=== PATIENT | female | born 1990 | race Caucasian/White ===

== ENCOUNTER → 2017-11-03 16:51 | Outpatient (CLI) | payer BC, SELFPAY ==
[2017-11-08 11:05] LABS: HPV Reflexed? NOT INDICATED
== END ==
PROVIDERS: Visit Provider Obstetrics & Gynecology
DX: Z12.4 Encounter for screening for malignant neoplasm of cervix (principal)
CPT/HCPCS: 88175; G0145

== ENCOUNTER → 2018-09-08 15:35 | Outpatient (CLI) | payer BC, SELFPAY ==
[2018-09-08 15:08] VITALS: BMI 29.3
[2018-09-08 17:42] LABS: Absolute Lymphocyte Count 2.58 X10^3/ul (0.83-4.51); Absolute Neutrophil Count 3.3 X10^3/uL (2.0-7.7); Basophil# 0.03 X10^3/uL; Basophil% 0.4 % (0-1); Eosinophils% 5.8 % (0-5); Hematocrit 35.9 % (37-47); Hemoglobin 11.8 g/dl (12.0-15.0); Lymphocyte # 2.58 X10^3/ul (4.0); Lymphocyte % 37.3 % (19-41); Mean Corp Hgb Conc 32.9 g/gl (32-36); Mean Corpuscular Hgb 33.7 pg (27.0-32.0); Mean Corpuscular Volume 102.6 fL (81-99); Mean Platelet Vol. 12.2 fl (6.2-12.0); Monocyte# 0.63 X10^3/uL; Monocyte% 9.1 % (0-10); Neutrophil # 3.28 X10^3/uL (2.7-7.7); Neutrophil % 47.4 % (47-70); Platelet Count 202 K/mm3 (150-450); White Blood Count 6.9 K/mm3 (4.4-11.0)
[2018-09-08 17:45] LABS: POSITIVE COUNT NO; POSITIVE DIFFERENTIAL NO; POSITIVE MORPHOLOGY NO
== END ==
PROVIDERS: Family Provider Internal Medicine; PCP Internal Medicine; Referring Provider Internal Medicine; Visit Provider Internal Medicine
DX: Z88.9 Allergy status to unspecified drugs, medicaments and biological substances (principal)
CPT/HCPCS: 36415; 85025

== ENCOUNTER → 2018-12-28 15:40 | Outpatient (CLI) | payer BC, SELFPAY ==
[2018-09-08 15:08] VITALS: BMI 29.3
[2019-01-03 15:42] LABS: HPV Reflexed? NOT INDICATED
== END ==
PROVIDERS: Visit Provider Obstetrics & Gynecology
DX: Z12.4 Encounter for screening for malignant neoplasm of cervix (principal)
CPT/HCPCS: 88175; G0145

== ENCOUNTER → 2019-05-11 17:22 | Outpatient (CLI) | payer BC, SELFPAY ==
[2019-05-11 16:21] VITALS: BMI 29.3
[2019-05-11 20:29] LABS: Chlamydia Trachomatis by PCR Negative (Negative); Neisserai gonorrhoeae by PCR Negative (Negative); Probe Check PASS; Sample Adequacy Control PASS; Specimen Processing Control PASS
== END ==
PROVIDERS: Family Provider Internal Medicine; PCP Internal Medicine; Referring Provider Obstetrics & Gynecology; Visit Provider Obstetrics & Gynecology
DX: Z34.81 Encounter for supervision of other normal pregnancy, first trimester (principal)
CPT/HCPCS: 36415; 87086; 87088; 87491; 87591

== ENCOUNTER → 2019-07-04 15:23 | Outpatient (CLI) | payer BC, SELFPAY ==
[2019-07-04 14:59] VITALS: BMI 29.3
[2019-07-04 16:25] LABS: Absolute Lymphocyte Count 2.65 X10^3/uL (0.83-4.51); Absolute Neutrophil Count 5.4 X10^3/uL (2.0-7.7); Basophil# 0.03 X10^3/uL; Basophil% 0.3 % (0-1); Eosinophil# 0.28 X10^3/uL; Eosinophils% 3.1 % (0-5); Hematocrit 31.9 % (37-47); Hemoglobin 10.7 g/dL (12.0-15.0); Lymphocyte # 2.65 X10^3/ul (4.0); Lymphocyte % 29.5 % (19-41); Mean Corp Hgb Conc 33.5 g/dL (32-36); Mean Corpuscular Hgb 34.4 pg (27.0-32.0); Mean Corpuscular Volume 102.6 fL (81-99); Mean Platelet Vol. 12.4 fl (6.2-12.0); Monocyte# 0.65 X10^3/uL; Monocyte% 7.2 % (0-10); NRBC Flagged by Analyzer 0 % (0-5); Neutrophil # 5.36 X10^3/uL (2.7-7.7); Neutrophil % 59.7 % (47-70); Platelet Count 177 K/mm3 (150-450); RBC Distribution Width CV 12.7 % (11.6-14.6); RBC Distribution Width SD 47.6 fl (35.1-43.9); Red Blood Count 3.11 M/mm3 (4.2-5.4)
[2019-07-05 09:41] LABS: HIV - WCH Non-Reactive (Nonreactive); Hepatitis B Surface Antigen Non-Reactive (Nonreactive); Rubella IgG 103.9 IU/mL
[2019-07-06 02:17] LABS: Rapid Plasmin Reagin (RPR) NONREACTIVE (NONREACTIVE)
== END ==
PROVIDERS: Family Provider Internal Medicine; PCP Internal Medicine; Referring Provider Obstetrics & Gynecology; Visit Provider Obstetrics & Gynecology
DX: Z34.00 Encounter for supervision of normal first pregnancy, unspecified trimester (principal)
CPT/HCPCS: 36415; 85025; 86592; 86703; 86762; 86850; 86900; 86901; 87340

== ENCOUNTER → 2019-09-01 16:10 | Outpatient (CLI) | payer BC, SELFPAY ==
[2019-09-01 15:16] VITALS: BMI 29.3
[2019-09-01 17:16] LABS: Absolute Lymphocyte Count 2.39 X10^3/uL (0.83-4.51); Absolute Neutrophil Count 5.9 X10^3/uL (2.0-7.7); Basophil# 0.02 X10^3/uL; Basophil% 0.2 % (0-1); Eosinophil# 0.21 X10^3/uL; Eosinophils% 2.3 % (0-5); Hematocrit 32.7 % (37-47); Hemoglobin 10.8 g/dL (12.0-15.0); Lymphocyte # 2.39 X10^3/ul (4.0); Mean Corpuscular Hgb 34.7 pg (27.0-32.0); Mean Corpuscular Volume 105.1 fL (81-99); Mean Platelet Vol. 12.4 fl (6.2-12.0); Monocyte# 0.63 X10^3/uL; Monocyte% 6.9 % (0-10); NRBC Flagged by Analyzer 0 % (0-5); Neutrophil % 64.3 % (47-70); Platelet Count 150 K/mm3 (150-450); RBC Distribution Width CV 12.5 % (11.6-14.6); Red Blood Count 3.11 M/mm3 (4.2-5.4); White Blood Count 9.2 K/mm3 (4.4-11.0)
[2019-09-01 17:50] LABS: Glucose Challenge Gest 1H 50g 151 mg/dL (70-140)
== END ==
PROVIDERS: PCP Internal Medicine; Referring Provider Obstetrics & Gynecology; Visit Provider Obstetrics & Gynecology
DX: Z34.01 Encounter for supervision of normal first pregnancy, first trimester (principal)
CPT/HCPCS: 36415; 82950; 85025

== ENCOUNTER → 2019-09-05 06:40 | Outpatient (CLI) | payer BC, SELFPAY ==
[2019-09-01 15:16] VITALS: BMI 29.3
[2019-09-05 07:43] LABS: Glucose GTT-Gestation. Fasting 84 mg/dL (<105)
== END ==
PROVIDERS: PCP Internal Medicine; Referring Provider Obstetrics & Gynecology; Visit Provider Obstetrics & Gynecology
DX: O99.810 Abnormal glucose complicating pregnancy (principal); Z3A.00 Weeks of gestation of pregnancy not specified
CPT/HCPCS: 36415; 82951; 82952

== ENCOUNTER → 2019-11-17 | Outpatient (CLI) | payer BC, SELFPAY ==
[2019-11-17 14:52] VITALS: BMI 29.3
== END | disposition home or self-care (01) ==
LOC: LABSPEC 16:41
PROVIDERS: PCP Internal Medicine; Referring Provider Obstetrics & Gynecology; Visit Provider Obstetrics & Gynecology
DX: Z34.93 Encounter for supervision of normal pregnancy, unspecified, third trimester (principal)
CPT/HCPCS: 87077; 87081

== ENCOUNTER 2019-12-15 07:10 | Inpatient (IN) | payer BC, SELFPAY ==
[2019-10-25 13:17] VITALS: BMI 29.3
[2019-12-14 09:59] VITALS: BMI 29.3
[2019-12-15] VITALS (34 sets, daily range): BP systolic 119–162; BP diastolic 69–94; PULSE 49–82; TEMP 36.4–37.1; O2SAT 98–100; BMI 32.7
[2019-12-15] MEDS: Lactated Ringers 1,000 ML 50 ML IV (08:25)
[2019-12-15] MEDS: Oxytocin 30 units/NS 500 ml 30 UNITS/500 ML IV.SOLN IV (08:36)
[2019-12-15 08:39] LABS: Absolute Lymphocyte Count 2.26 X10^3/uL (0.83-4.51); Absolute Neutrophil Count 4.8 X10^3/uL (2.0-7.7); Basophil# 0.02 X10^3/uL; Basophil% 0.3 % (0-1); Eosinophil# 0.05 X10^3/uL; Eosinophils% 0.6 % (0-5); Hematocrit 29.6 % (37-47); Hemoglobin 9.7 g/dL (12.0-15.0); Lymphocyte # 2.26 X10^3/ul (4.0); Mean Corp Hgb Conc 32.8 g/dL (32-36); Mean Corpuscular Hgb 35.3 pg (27.0-32.0); Mean Corpuscular Volume 107.6 fL (81-99); Mean Platelet Vol. 14.2 fl (6.2-12.0); Monocyte# 0.61 X10^3/uL; Monocyte% 7.8 % (0-10); NRBC Flagged by Analyzer 0 % (0-5); Neutrophil # 4.81 X10^3/uL (2.7-7.7); Neutrophil % 61.9 % (47-70); Platelet Count 107 K/mm3 (150-450); RBC Distribution Width CV 12.7 % (11.6-14.6); RBC Distribution Width SD 49.5 fl (35.1-43.9); Red Blood Count 2.75 M/mm3 (4.2-5.4); White Blood Count 7.8 K/mm3 (4.4-11.0)
[2019-12-15 10:31] LABS: Probe Check PASS; SARS-COV-2 DNA by PCR Negative (Negative); Specimen Processing Control PASS
[2019-12-15] MEDS: Lactated Ringers 500 ML 999 ML IV ×2 (14:32→17:46)
[2019-12-15] MEDS: fentaNYL-bupivacaine (epidural) 100 ML BAG EPIDURAL (19:35)
[2019-12-15] MEDS: Lactated Ringers 1,000 ML 200 ML IV (20:31)
[2019-12-16] VITALS (26 sets, daily range): BP systolic 111–151; BP diastolic 55–85; PULSE 50–90; RESP 16; TEMP 36.4–37.3; O2SAT 97–99
[2019-12-16] MEDS: fentaNYL-bupivacaine (epidural) 100 ML BAG EPIDURAL (00:07)
[2019-12-16] MEDS: Acetaminophen 325 MG Tablet PO (01:36)
[2019-12-16] MEDS: Lactated Ringers 1,000 ML 200 ML IV (01:37)
--- NOTE | 2019-12-16 02:15 | PCM.HPOB.BLA ---
- Problem List (1) Abnormal glucose affecting Status: Acute Comment: vomited at 3gtt, nl home BS testing- normal (2) Post-dates Status: Acute Comment: COVID testing ordered 12/14/2019 (3) Status: Acute Qualifiers: Comment: NIPT-low risk male, carrier-14/14 negative, and declined ntd screening. Normal anatomy (4) Supervision of normal Status: Acute Qualifiers: Comment: PRR KONRAD 12/11/19 boy Vance Judah History and Physical Date of Admission: 12/16/19 Intake Vital Signs 12/14/19 Height 5 ft 6 in 12/14/19 Weight: 202 lb 12/14/19 BMI 32.5 12/14/19 BP 134/70 H 12/08/19 BMI 29.3 Intake Visit Reasons: 41 WK OB Can Patcher Required: No Is patient in pain?: No Allergies amoxicillin Allergy (Intermediate, Verified 12/14/19 09:35) Rash Medications cetirizine 10 mg capsule 10 mg PO DAILY 05/11/19 [History Confirmed 12/14/19] vitamin#30 30 mg iron-10 mg iron-folic acid 1 mg-omg3 capsule cap PO cap 05/11/19 [History Confirmed 12/14/19] psyllium husk 0.52 gram capsule 0.52 g PO DAILY 05/11/19 [History Confirmed 12/14/19] blood sugar diagnostic See Rx Instructions .ROUTE .MEDSUPPLY #100 ea 09/05/19 [Rx Confirmed 12/14/19] blood-glucose meter See Rx Instructions .ROUTE .MEDSUPPLY #1 ea 09/05/19 [Rx Confirmed 12/14/19] Last Menstral Period: 03/06/19 Zika: Zika virus screening: Negative : No PFSH PFSH Medical History Anemia (Acute) Seasonal allergies (Resolved) Family History Mother Thyroid disorder Depression Arthritis Brother Depression Grandfather Alcoholism Schizophrenia Kidney disease Grandmother Diabetes Social History (Updated 12/14/19 @ 09:[address] 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 Patient denies any vaginal bleeding or loss of fluid admits good movement and has irregular contractions. OB Visit KONRAD Calculator Estimated Delivery Date Method Current WG Current Estimate 12/11/19 LMP (Certain) Expected Delivery Route/Plan Labor Preferences- labor support person: Judah pain management options preferred: open to epidural cut cord/dad catch: yes : yes PP control planned: discussed possible routes of delivery and associated risks: discussed options special requests: minimal intervention preferred Specific Issue/Plans flu vaccine: given tdap vaccine: given rhogam: na LARC form signed: yes movement and labor precautions reviewed. Problem list reviewed and updated with the most current plan of care details and appropriate orders placed. Relevant counseling for the gestational age provided. Continue routine care and follow up unless otherwise noted in visit notes/problem list details Initial Weight: 162 lb Date EGA Weight BP Urine Prot Glucose FHR FuHt Pres Dilation Effaced St Visit Note 05/11/19 9w 3d 162 lb (+0 oz) 170 06/09/19 13w 4d 163 lb 2 oz (+1 lb 2 oz) 129/73 Negative Negative 145 no vb cramping 07/04/19 17w 1d 166 lb 2 oz (+4 lb 2 oz) 124/60 Negative Negative 140 18 no vb cramping 08/03/19 21w 3d 170 lb (+8 lb) 110/72 Negative Negative 135 21 SM- no vb cramping 09/01/19 25w 4d 178 lb (+16 lb) 98/60 Negative Negative 140 26 SM- no vb lof good fm no regular ctx cbc gct today 09/12/19 27w 1d 181 lb (+19 lb) 122/78 Negative Negative 145 28 SM- no vb lof good fm no regular ctx. vomited at 3 hour test, dtesting BS at home- no diabetes 09/29/19 29w 4d 186 lb 8 oz (+24 lb 8 oz) 104/70 Negative Negative 145 31 sm- NO VB LOF GOOD FM NO REGULAR CTX 10/13/19 31w 4d 187 lb (+25 lb) 116/64 Negative Negative 140 32 SM- no vb lof good fm no regular ctx 10/25/19 33w 2d 191 lb (+29 lb) 120/82 151 33 MH-no Vb, LOF. Good FM. Unable to give urine today 11/17/19 36w 4d 196 lb (+34 lb) 118/70 Negative Negative 150 36 Cephalic 0.5 -1 SM- no vb lof good fm no regular ctx 11/24/19 37w 4d 198 lb (+36 lb) 118/72 Negative Negative 145 37 Cephalic 1 50 -1 SM- no vb lof good fm no regular ctx gbs pos reviewed SM- no vb lof good fm no regular ctx 12/01/19 38w 4d 135 38 Cephalic 1.5 60 -2 SM- no vb lof good fm no regular ctx 12/08/19 39w 4d 201 lb (+39 lb) 126/72 Negative Negative 135 38 Cephalic 3 70 -1 Sm- no vb lof good fm no regular ctx 12/14/19 40w 3d 202 lb (+40 lb) 134/70 Negative Negative 130 37 Cephalic 3 70 -1 SM- n ovb lof good fm no regular ctx. discuss IOL postdates Notes Visit Date: 12/14/19 ??No visit notes to display Visit Date: 12/08/19 ??No visit notes to display Visit Date: 12/01/19 ??No visit notes to display Visit Date: 11/24/19 ??No visit notes to display Visit Date: 11/17/19 ??No visit notes to display Visit Date: 10/25/19 ??No visit notes to display Visit Date: 10/13/19 ??No visit notes to display Visit Date: 09/29/19 ??No visit notes to display Visit Date: 09/12/19 ??No visit notes to display Visit Date: 09/01/19 ??No visit notes to display Visit Date: 08/03/19 ??No visit notes to display Visit Date: 07/04/19 ??No visit notes to display Visit Date: 06/09/19 ??no vb cramping ??Deann Meeks MD on 06/09/19 Visit Date: 05/11/19 ??No visit notes to display ACOG First Trimester First Trimester: Desire for , Alcohol, Tobacco Cessation, Illicit/Recreational Drug/Substance Use, Intimate Partner Violence, Barriers to care, Unstable Housing, Communication Barriers, Environmental/Work Hazards, Anticipated Course of Care, Toxoplasmosis Precations, Use of Any medications, Sexual activity, Exercise, Dental Care, Sauna/Hot tub use, Seat Belt use, Childbirth classes/Hospital facilities, , Travel, Indications for US and Screening for Aneuploidy Second Trimester Second Trimester: Signs and Symptoms of Labor, Selecting a care provider, Reproductive Life Planning, Care Planning, Tobacco Cessation, Depression/Anxiety and Intimate Partner Violence Third Trimester Third Trimester: Pain Management Plans, Labor support person(s), Immediate Larc, Movement Monitoring and Infant Feeding Yes ; discussed Trial of Labor after Counseling or discussed Circumcision preference Diagnostics Diagnostics Diagnostics Gest Glucose Tolerance MG/DL 09/05/19 Glucose 1 Hr 50 gm 151 mg/dL (70-140) H 09/01/19 Hgb 10.8 g/dL (12.0-15.0) L 09/01/19 Hct 32.7 % (37-47) L 09/01/19 Details: HIV: Urine Culture: Sequential Screen: NIPT Screen: ROS Const Reports system reviewed and no additional complaints, except as docu Card Reports system reviewed and no additional complaints, except as docu Resp Reports system reviewed and no additional complaints, except as docu GI Reports system reviewed and no additional complaints, except as docu, Reports nausea Reports system reviewed and no additional complaints, except as docu Musc Reports system reviewed and no additional complaints, except as docu Exam Const General: cooperative, healthy appearing, comfortable, anxious HENMT Head: normal to inspection Nose: external nose normal Face and sinus: normal facial exam Neck Neck: normal visual inspection, full ROM, no lymphadenopathy Thyroid: thyroid normal Chest Chest palpation & inspection: normal inspection of the chest Resp Effort & Inspection: normal respiratory effort GI Inspection: normal to inspection Palpation: soft, other (gravid uterus) Other: vertex and appropriate size for gestational age Other: Cervical Exam: Extrem General: pedal edema Results POC Urinalysis 2 Dip (Clinic) Office Urine Glucose Negative Last Edit by Farideh Hong on 12/14/19 09:36 Office Urine Protein Negative Last Edit by Farideh Hong on 12/14/19 09:36 Assessment & Plan Problems 1. Abnormal glucose affecting O99.810 vomited at 3gtt, nl home BS testing- normal 2. 40 weeks gestation of Z3A.40 NIPT-low risk male, carrier-14/14 negative, and declined ntd screening. Normal anatomy 3. Encounter for supervision of normal first in first trimester Z34.01 PRR KONRAD 12/11/19 boy Vance Judah Lam Patient presents IOL postdates, plan management for , pitocin/AROM tomorrow. Pain management: open to epidural. GBS negative. Management of any complications: none I have reviewed the [facility] and made any clinically relevant updates. Orders Orders: POC Urinalysis 2 Dip (Clinic) Today Coding Level of Care Code OB Routine Diagnoses Abnormal glucose affecting O99.810 40 weeks gestation of Z3A.40 ??Weeks of gestation: 40 weeks Encounter for supervision of normal first in first trimester Z34.01 ??Normal : normal first ??Trimester: first trimester
--- NOTE | 2019-12-16 02:17 | PCM.OPRPT ---
Problem List (1) Abnormal glucose affecting Status: Acute Comment: vomited at 3gtt, nl home BS testing- normal (2) Post-dates Status: Acute Comment: COVID testing ordered 12/14/2019 (3) Status: Acute Qualifiers: Comment: NIPT-low risk male, carrier-14/14 negative, and declined ntd screening. Normal anatomy (4) Supervision of normal Status: Acute Qualifiers: Comment: PRR KONRAD 12/11/19 boy Vance Judah Vaginal Delivery Maternal Presentation: Medically Indicated Induction iol postdates 40w4d Method of Induction: Pitocin Amniotic Membrane Rupture Type: Artificial Amniotic Fluid Description: Clear Final KONRAD: 12/11/19 Gestational age: 40 Weeks and 5 Days Date of Procedure: 12/16/19 Pre-Operative Diagnosis: iol postdates Post-Operative Diagnosis: same Surgery/ Procedure Performed: Spontaneous Vaginal Delivery Type of Anesthesia: Epidural Description of Procedure: Patient began pushing and delivered the head in the [PJ] presentation. The head was delivered atraumatically. Upon delivery of the head it was apparent that her shoulder dystocia was encountered. Gentle downward traction was applied to the head wall Angel and suprapubic from maternal left were applied. With no reduction after 30 seconds with screw maneuver was employed to rotate the shoulders so the anterior shoulder was the left shoulder instead of the right. Additional suprapubic was then placed and the shoulder reduced for a total duration of 45 seconds. Delayed cord clamping was employed for approximately 60 seconds. Cord was clamped and cut and gentle traction was applied to the cord and the placenta delivered spontaneously immediately following it was noted to be intact with three-vessel cord. The perineum and vagina were inspected and noted to have a third-degree perineal laceration. Patient was noted to have a very short perineal body. Hymenal band that had been prior noted to have completely removed with delivery. EBL was 300 cc. Patient and tolerated delivery well. Presentation: PJ Placental Delivery Description: Spontaneous Placenta Disposition: [facility] Cord Vessel Description: 3 Vessels Cord Entanglement: None Estimated Blood Loss: 300 Infant A gender: Male (1 minute): 7 (5 minute): 9 Episiotomy Description: None Laceration: Perineal Extension/lac, 3rd degree Medications given after delivery: IV Pitocin Complications: - - moderate shoulder dystocia, discussed with parents that between having the moderate shoulder dystocia that also resulted in a third-degree tear, this does appear to be a larger and I believe it would be possible to have another vaginal but I would recommend induction of labor at 39 weeks to reduce size. I also discussed with the patient that she could consider primary in the future, and if infant was the same weight or more this would be the desired route for delivery possibly. Multi Select Codes - Urinary/Genital Urinary/Genital CPT Codes: 31553 Vaginal Delivery [facility]
[2019-12-16] MEDS: Oxytocin 30 units/NS 500 ml 30 UNITS/500 ML IV.SOLN 334 UNITS IV (03:10)
[2019-12-16] MEDS: Ketorolac 30 MG/ML Syringe IV (04:33)
[2019-12-16] MEDS: 0.9% Saline Lock 10 ML Syringe IV (04:34)
[2019-12-16] MEDS: Acetaminophen 500 MG Tablet 1000 MG PO ×3 (07:37→23:53)
[2019-12-16] MEDS: Ketorolac 10 MG Tablet PO ×3 (10:37→21:45)
[2019-12-16] MEDS: Loratadine 10 MG Tablet PO (10:37)
[2019-12-16] MEDS: Psyllium 1 PACKET PO (10:37)
[2019-12-16] MEDS: Prenatal Vits Tablet 1 TABLET PO (10:37)
[2019-12-16] MEDS: oxyCODONE 5 MG Tablet PO ×2 (13:06→18:11)
[2019-12-17] VITALS: BP 97/53; PULSE 61; RESP 16; TEMP 36.5
[2019-12-17] MEDS: oxyCODONE 5 MG Tablet PO ×3 (00:44→12:38)
[2019-12-17] MEDS: Ketorolac 10 MG Tablet PO ×2 (04:31→10:04)
--- NOTE | 2019-12-17 07:12 | PN.OBGYN_ITS ---
Subjective: doing well no complaints pain controlled no CP SOB N V ambulating well tolerating po lochia moderate, going well - Physical Exam Vitals/I&O's: Vital Signs Temp Pulse Resp BP Pulse Ox 97.7 F L 61 16 97/53 L 98 12/17/19 00:00 12/17/19 00:00 12/17/19 00:00 12/17/19 00:00 12/16/19 05:30 Oxygen Delivery Method Room Air Weight: 202 lb 9.6 oz Body Mass Index (BMI) 32.7 Intake and Output for Last 24 Hours 12/15/19 12/16/19 12/17/19 23:59 23:59 23:59 Intake Total 1868.73 / 1868.73 2508.50 / 2508.50 Output Total 1999 Balance 1868.73 / 1868.73 508.50 / 508.50 General: Alert, Oriented x3 Current Medications Acetaminophen (Tylenol) 1,000 mg PO Q8H PRN PRN PRN Reason: Pain Score 1-3/10 Last Admin: 12/16/19 23:53 Dose: 1,000 mg Documented by: Bisacodyl (Dulcolax) 10 mg RECTAL UD PRN PRN Reason: If no BM Dibucaine (Dibucaine) 1 applic TOPICAL TID PRN PRN; Protocol PRN Reason: Discomfort Hydrocortisone (Hytone) 1 applic TOPICAL TID PRN PRN; Protocol PRN Reason: Discomfort Ketorolac Tromethamine (Toradol) 10 mg PO Q6H [facility] Stop: 12/21/19 07:46 Last Admin: 12/17/19 04:31 Dose: 10 mg Documented by: Loratadine (Claritin) 10 mg PO DAILY [facility] Last Admin: 12/16/19 10:37 Dose: 10 mg Documented by: Methylergonovine Maleate (Methergine) 0.2 mg IM X1 PRN PRN Reason: Excess bleeding/uterine atony Ondansetron HCl (Zofran) 4 mg IV Q4H PRN PRN PRN Reason: Nausea Oxycodone HCl (Oxyir) 5 - 10 mg PO Q4H PRN PRN PRN Reason: Pain Score 4-10/10 Last Admin: 12/17/19 00:44 Dose: 10 mg Documented by: Multivit/Folic Acid/Iron (Prenatabs Fa) 1 tablet PO DAILY [facility] Last Admin: 12/16/19 10:37 Dose: 1 tablet Documented by: Psyllium Hydrophilic Mucilloid (Metamucil) 1 packet PO DAILY [facility] Last Admin: 12/16/19 10:37 Dose: 1 packet Documented by: Senna/Docusate Sodium (Senokot-S, Maria M-Colace) 1 - 2 tablet PO DAILY PRN PRN PRN Reason: Constipation Simethicone (Mylicon) 80 mg PO PCHS PRN PRN Reason: Indigestion/Stomach pain Sodium Chloride () 5 - 15 ml IV UD PRN PRN Reason: SALINE FLUSH Last Admin: 12/16/19 04:34 Dose: 10 ml Documented by: Medical Necessity - Tobacco Use Smoking Status: Never smoker Assessment/Plan All Active Problems (Last Reviewed 12/14/19 @ 09:34 by Farideh Hong) Post-dates (Acute) Abnormal glucose affecting (Acute) (Acute) Supervision of normal (Acute) Positive GBS test (Resolved) Seasonal allergies (Resolved) s/p PPD # 1 1. routine post delivery care 2. breast feeding- support given 3. rh positive 4. rubella immune
--- NOTE | 2019-12-17 07:13 | DCINST_ITS ---
Discharge Diet: No Restrictions Discharge Activity: Return to Normal Activity, May not drive while taking narcotic pain medications., May Shower May resume sexual activity in: 4-6 weeks Call your doctor if your incision/area has: Continuous Slow Oozing, Sudden Increased Bleeding, Increased Pain/ Swelling, Increased Redness, Foul Smelling Discharge Additional Instructions: If you experience any of the following, contact your healthcare provider. * Bleeding that soaks a pad every hour for 2 hours * Fever 100.4 or higher * Unrelieved incision or abdominal pain * Swelling, redness, discharge or bleeding from your incision or episiotomy site * Your incision begins to separate * Problems urinating (including inability to urinate or burning while urinating). * Visual changes * Severe headache * Flu-like symptoms * Pain or redness in one of both of your breasts * Pain, warmth, tenderness or swelling in your legs, especially the calf area * Frequent nausea and vomiting * Symptoms of depression or anxiety If you experience any of the following, call 911 or go to the nearest Emergency Room. * Chest pain * Problems breathing * Seizure activity * Partial or complete paralysis of a body part, slurred speech, weakness or drooping of the face, or a sudden inability to walk or hold your balance Allergies/Adverse Reactions: Allergies amoxicillin Allergy (Intermediate, Verified 12/15/19 07:44) Rash Medications to take at Discharge cetirizine 10 mg capsule 10 mg PO DAILY 05/11/19 vitamin#30 30 mg iron-10 mg iron-folic acid 1 mg-omg3 capsule 1 cap PO DAILY cap 05/11/19 psyllium husk 0.52 gram capsule 0.52 g PO DAILY 05/11/19 Please Follow Up With: Deann Meeks MD - [phone] When: Call to make an appointment with your doctor in 6 weeks. If you had elevated Blood pressure or 4th degree laceration you will need to be seen in 2 weeks. Primary Care Physician: Landon Garcia MD [Primary Care Provider] - Test Results: Test results from this visit will be discussed in further detail at your follow- up appointment, if applicable.
[2019-12-17] MEDS: Senna/Docusate Sodium 1 Tablet PO (08:21)
[2019-12-17 08:30] VITALS: BP 118/81; PULSE 62; RESP 16; TEMP 36.6
[2019-12-17] MEDS: Loratadine 10 MG Tablet PO (10:04)
[2019-12-17] MEDS: Psyllium 1 PACKET PO (10:04)
[2019-12-17] MEDS: Prenatal Vits Tablet 1 TABLET PO (10:04)
[2019-12-17 14:00] VITALS: BP 112/67; PULSE 66; RESP 16; TEMP 36.6
== END 2019-12-17 15:55 | disposition home or self-care (01) | DRG 768 ==
PROVIDERS: Admitting Provider Obstetrics & Gynecology; PCP Internal Medicine; Visit Provider Obstetrics & Gynecology
DX: O48.0 Post-term pregnancy (principal); Z37.0 Single live birth; O70.20 Third degree perineal laceration during delivery, unspecified; O66.0 Obstructed labor due to shoulder dystocia; O99.814 Abnormal glucose complicating childbirth; Z3A.40 40 weeks gestation of pregnancy
CPT/HCPCS: 59025; 59050; 85025; 86850; 86900; 86901; 87635; 99218; G2023; J7120; A4216; G0378; U0004

== ENCOUNTER 2021-08-11 15:38 | Outpatient (CLI) | payer BC, SELFPAY ==
[2021-08-11 16:42] LABS: Absolute Lymphocyte Count 2.62 X10^3/uL (0.83-4.51); Absolute Neutrophil Count 2.2 X10^3/uL (2.0-7.7); Basophil# 0.04 X10^3/uL; Basophil% 0.7 % (0-1); Eosinophils% 6.9 % (0-5); Hematocrit 36.1 % (37-47); Hemoglobin 12.1 g/dL (12.0-15.0); Lymphocyte # 2.62 X10^3/ul (0.83-4.51); Lymphocyte % 44.9 % (19-41); Mean Corp Hgb Conc 33.5 g/dL (32-36); Mean Corpuscular Hgb 32.8 pg (27.0-32.0); Mean Corpuscular Volume 97.8 fL (81-99); Mean Platelet Vol. 12.5 fl (6.2-12.0); Monocyte% 10.3 % (0-10); NRBC Flagged by Analyzer 0 % (0-5); Neutrophil # 2.16 X10^3/uL (2.7-7.7); Platelet Count 194 K/mm3 (150-450); RBC Distribution Width CV 12.7 % (11.6-14.6); RBC Distribution Width SD 45.5 fl (35.1-43.9); Red Blood Count 3.69 M/mm3 (4.2-5.4); White Blood Count 5.8 K/mm3 (4.4-11.0)
[2021-08-11 16:58] LABS: ALB/GLOB Ratio 0.9 RATIO (0.9-2.4); AST(SGOT) 11 U/L (15-37); Alanine Aminotransfer ALT/SGPT 21 U/L (13-56); Albumin, Serum 3.6 g/dL (3.2-5.0); Alkaline Phosphatase 46 U/L (45-117); Anion Gap 3 (5-15); BUN 7 mg/dL (7-18); BUN/Creat Ratio 9.7 RATIO (10-20); Calcium,Total 8.7 mg/dL (8.5-10.1); Chloride 108 mmol/L (98-107); Cholesterol 166 mg/dL (200); Creatinine, Serum 0.72 mg/dL (0.55-1.02); EST Glomerular Filtration Rate 99 mL/min (>60); Est Glom Filt Rate - Afr Amer 120 mL/min (>60); Globulin 3.8 g/dL (2.2-4.2); Glucose 92 mg/dL (74-106); High Density Lipoprotein 31 mg/dL; Potassium 3.9 mmol/L (3.5-5.1); Protein, Total 7.4 g/dL (6.4-8.2); Sodium Level 138 mmol/L (136-145); Triglycerides 187 mg/dL; Very Low Density Lipoprotein 37 mg/dL (5-40)
== END 2021-08-11 23:59 | disposition short-term general hospital (02) ==
LOC: BIMLAB 15:38
PROVIDERS: PCP Internal Medicine; Referring Provider Internal Medicine; Visit Provider Internal Medicine
DX: Z00.00 Encounter for general adult medical examination without abnormal findings (principal)
CPT/HCPCS: 36415; 80053; 80061; 85025

== ENCOUNTER 2021-10-23 16:51 | Outpatient (CLI) | payer BC, SELFPAY ==
[2021-10-29 21:38] LABS: HPV APTIMA, High Risk Negative (Negative)
== END 2021-10-23 23:59 | disposition home or self-care (01) ==
LOC: LABSPEC 16:53
PROVIDERS: PCP Internal Medicine; Visit Provider Obstetrics & Gynecology
DX: Z12.4 Encounter for screening for malignant neoplasm of cervix (principal)
CPT/HCPCS: 87624; 88175; G0145

== ENCOUNTER → 2022-01-15 | Outpatient (CLI) | payer BC, SELFPAY ==
[2022-01-15 15:20] LABS: Absolute Lymphocyte Count 2.01 X10^3/uL (0.83-4.51); Basophil# 0.02 X10^3/uL; Basophil% 0.2 % (0-1); Eosinophil# 0.19 X10^3/uL; Eosinophils% 2.3 % (0-5); Hematocrit 34.5 % (37-47); Hemoglobin 11.6 g/dL (12.0-15.0); Lymphocyte # 2.01 X10^3/ul (0.83-4.51); Lymphocyte % 24.7 % (19-41); Mean Corp Hgb Conc 33.6 g/dL (32-36); Mean Corpuscular Hgb 33.4 pg (27.0-32.0); Mean Corpuscular Volume 99.4 fL (81-99); Mean Platelet Vol. 11.3 fl (6.2-12.0); Monocyte# 0.93 X10^3/uL; Monocyte% 11.4 % (0-10); NRBC Flagged by Analyzer 0 % (0-5); Neutrophil # 4.97 X10^3/uL (2.7-7.7); Neutrophil % 61.2 % (47-70); Platelet Count 205 K/mm3 (150-450); RBC Distribution Width CV 11.9 % (11.6-14.6); RBC Distribution Width SD 43.7 fl (35.1-43.9); Red Blood Count 3.47 M/mm3 (4.2-5.4); White Blood Count 8.1 K/mm3 (4.4-11.0)
[2022-01-15 16:13] LABS: NATERA MAILED SPECIMEN
[2022-01-15 17:32] LABS: HIV - WCH Non-Reactive (Nonreactive); Hepatitis B Surface Antigen Non-Reactive (Nonreactive); Hepatitis C Antibody Non-Reactive (Nonreactive); Rubella IgG Reactive (Nonreactive); Syphilis Antibodies Non-reactive
[2022-01-15 17:33] LABS: Amphetamine Urine VISTA NEGATIVE (<1000 ng/mL); Barbiturate Urine VISTA NEGATIVE (< 200 ng/mL); Benzodiazepine Urine VISTA NEGATIVE (< 200 ng/mL); Cocaine Urine VISTA NEGATIVE (< 300 ng/mL); Ecstacy Urine VISTA NEGATIVE (< 500 ng/mL); Methadone Urine VISTA NEGATIVE (< 300 ng/mL); PCP Urine VISTA NEGATIVE (< 25 ng/mL); THC Urine VISTA NEGATIVE (< 50 ng/mL); Vista UDS pH Range 6
[2022-01-20 09:19] LABS: Chlamydia By Nucleic Acid AMP Negative (Negative)
[2022-01-20 16:54] LABS: Gonococcus By Nucleic Acid AMP Negative (Negative)
== END | disposition home or self-care (01) ==
PROVIDERS: PCP Internal Medicine; Referring Provider Obstetrics & Gynecology; Visit Provider Obstetrics & Gynecology
DX: Z34.81 Encounter for supervision of other normal pregnancy, first trimester (principal)
CPT/HCPCS: 36415; 80307; 85025; 86703; 86762; 86780; 86803; 86850; 86900; 86901; 87086; 87088; 87340; 87491; 87591

== ENCOUNTER → 2022-05-27 | Outpatient (CLI) | payer BC, SELFPAY ==
[2022-05-27 13:32] LABS: Absolute Lymphocyte Count 2.06 X10^3/uL (0.83-4.51); Absolute Neutrophil Count 5.5 X10^3/uL (2.0-7.7); Basophil# 0.01 X10^3/uL; Basophil% 0.1 % (0-1); Eosinophil# 0.22 X10^3/uL; Eosinophils% 2.6 % (0-5); Hematocrit 30.3 % (37-47); Hemoglobin 10.1 g/dL (12.0-15.0); Lymphocyte # 2.06 X10^3/ul (0.83-4.51); Lymphocyte % 24.8 % (19-41); Mean Corp Hgb Conc 33.3 g/dL (32-36); Mean Corpuscular Hgb 33.9 pg (27.0-32.0); Mean Corpuscular Volume 101.7 fL (81-99); Mean Platelet Vol. 11.8 fl (6.2-12.0); Monocyte# 0.51 X10^3/uL; Monocyte% 6.1 % (0-10); NRBC Flagged by Analyzer 0 % (0-5); Neutrophil # 5.48 X10^3/uL (2.7-7.7); Platelet Count 184 K/mm3 (150-450); RBC Distribution Width CV 12.6 % (11.6-14.6); RBC Distribution Width SD 47.3 fl (35.1-43.9); Red Blood Count 2.98 M/mm3 (4.2-5.4); White Blood Count 8.3 K/mm3 (4.4-11.0)
[2022-05-27 13:40] LABS: Glucose Challenge Gest 1H 50g 118 mg/dL (70-140)
[2022-05-27 15:58] LABS: HIV - WCH Non-Reactive (Nonreactive); Syphilis Antibodies Non-reactive
== END | disposition home or self-care (01) ==
LOC: PAVLAB 13:11
PROVIDERS: PCP Internal Medicine; Referring Provider Obstetrics & Gynecology; Visit Provider Obstetrics & Gynecology
DX: Z34.90 Encounter for supervision of normal pregnancy, unspecified, unspecified trimester (principal); Z13.1 Encounter for screening for diabetes mellitus
CPT/HCPCS: 36415; 82950; 85025; 86703; 86780

== ENCOUNTER 2022-06-14 21:35 | Outpatient (CLI) | payer BC, SELFPAY ==
[2022-06-14 21:50] VITALS: BMI 30.4
[2022-06-14 21:51] VITALS: BP 119/68; PULSE 75; TEMP 36.9
--- NOTE | 2022-06-14 22:15 | OB.TRI.HP_ITS ---
HPI - General HPI Narrative ARGENIS SANTOS, is a 32 F who presents with contractions the last two hours no vb lof admits good fm, ctx are starting to decrease now to every ten minutes, took tylenol earlier, initially felt no relief but now does. had malaise throughout the day and fatigue. Maternal Data Information KONRAD Calculator Estimated Delivery Date Method Current WG Current Estimate 08/20/22 LMP (Certain) 30w 3d PFSH PFSH Medical History Anemia Depression Lab test negative for COVID-19 virus Preventative health care Seasonal allergies URI (upper respiratory infection) Home Medications cetirizine 10 mg capsule (Zyrtec) 10 mg PO DAILY allergies 05/11/19 [History Last Taken 12/14/19] vitamin#30 30 mg iron-10 mg iron-folic acid 1 mg-omg3 capsule 1 cap PO DAILY 05/11/19 [History Last Taken 12/15/19 07:00] psyllium husk 0.52 gram capsule (Daily Fiber) 0.52 g PO DAILY fiber 05/11/19 [History Last Taken 12/15/19] fluticasone prop.50 mcg spray,suspen-sod.chloride 0.9% nasal spray kit ea intranasal 05/27/22 [History Last Taken Unknown] Allergy/AdvReac Type Severity Reaction Status Date / Time amoxicillin Allergy Intermediate Rash Verified 06/10/22 14:42 Family History Mother Thyroid disorder Depression Arthritis Brother Depression Grandfather Alcoholism Schizophrenia Kidney disease Grandmother Diabetes Social History Smoking Status: Never smoker alcohol intake: current alcohol intake frequency: a few times a month Alcohol type: beer details: pre substance use type: does not use what type of physical activity do you participate in: none frequency: 3-4 times per week seatbelt use: always do you feel safe at home: Yes 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 Date Name GA/Weeks Outcome Route Bth Weight Gen Labor Lgth Anesthesia Del Locatn Provider FOB 12/16/19 Vance 40 live - full term 8lbs 15oz Male [facility] Dr. Deann Meeks Delivery Date: 12/16/19 Last Updated by: Farideh Hong 3rd degree laceration, moderate shoulder dytocia Visit Details Expected Delivery Route/Plan Labor Preferences- CB/BF classes: no labor support person: Judah labor intervention preferences: [] pain management options preferred: epidural cut cord/dad catch: cord : yes PP control planned: discussed considering vasectomy discussed possible routes of delivery and associated risks: [] special requests: [] Plans Covid status: discussed Flu vaccine: at employer Tdap vaccine: [] Rhogam: na LARC form signed: yes Problem list reviewed and updated with the most current plan of care details and appropriate orders placed. Relevant counseling for the gestational age provided. Continue routine care and follow up unless otherwise noted in visit notes/problem list details OB Flowsheet Initial Weight: Not Recorded Date -?-?-?-?-?-?-?-?-?-?-?-?- EGA Weight BP Urine Prot -?-?-?-?-?-?-?-?-?-?-?-?- Glucose FHR FuHt Pres Dilation -?-?-?-?-?-?-?-?-?-?-?-?- Effaced St Visit Note 01/15/22 -?-?-?-?-?-?-?-?-?-?-?-?- 9w 0d 181 lb 113/62 -?-?-?-?-?-?-?-?-?-?-?-?- 170 -?-?-?-?-?-?-?-?-?-?-?-?- SM- CRL 2.3cm co ns with LMP 02/10/22 -?-?-?-?-?-?-?-?-?-?-?-?- 12w 5d 179 lb 126/78 Negative -?-?-?-?-?-?-?-?-?-?-?-?- Negative 160 -?-?-?-?-?-?-?-?-?-?-?-?- SM- no vb crampi ng still nausea. 03/13/22 -?-?-?-?-?-?-?-?-?-?-?-?- 17w 1d 178 lb 8 oz 112/60 Nega tive -?-?-?-?-?-?-?-?-?-?-?-?- Negative 154 -?-?-?-?-?-?-?-?-?-?-?-?- JV- no lof, vagi nal bleeding, or cramping. anatomy ultrasound ordered. 04/10/22 -?-?-?-?-?-?-?-?-?-?-?-?- 21w 1d 184 lb 101/67 Negative -?-?-?-?-?-?-?-?-?-?-?-?- Negative 134 -?-?-?-?-?-?-?-?-?-?-?-?- JV- no lof, vagi nal bleeding, or cramping. info on covid vaccine given. 05/08/22 -?-?-?-?-?-?-?-?-?-?-?-?- 25w 1d 185 lb 116/66 Negative -?-?-?-?-?-?-?-?-?-?-?-?- Negative 140 25 -?-?-?-?-?-?-?-?-?-?-?-?- SM- no vb lof go od fm no regular ctx 05/27/22 -?-?-?-?-?-?-?-?-?-?-?-?- 27w 6d 187 lb 6 oz 110/68 Nega tive -?-?-?-?-?-?-?-?-?-?-?-?- Negative 151 27 -?-?-?-?-?-?-?-?-?-?-?-?- MH-No VB, LOF. G ood FM. Larc. 28 wk labs. 06/10/22 -?-?-?-?-?-?-?-?-?-?-?-?- 29w 6d 188 lb 8 oz 98/63 Nega tive -?--?-?-?-?-?-?-?-?-?-?-?- Negative 143 29 -?-?-?-?-?-?-?-?-?-?-?-?- LC- no vb,lof,ct x. good FM. started iron, repeat cbc order placed. tdap given today. 06/14/22 -?-?-?-?-?-?-?-?-?-?-?-?- 30w 3d 119/68 -?-?-?-?-?-?-?-?-?-?-?-?- -?-?-?-?-?-?-?-?-?-?-?-?- ROS Constitutional Constitutional: Reports systems reviewed and no addt'l complaints, except as documented and as per HPI ENT HEENT: Reports systems reviewed and no addt'l complaints, except as documented Cardiovascular Cardiovascular: Reports systems reviewed and no addt'l complaints, except as documented Respiratory/Chest Respiratory/Chest: Reports systems reviewed and no addt'l complaints, except as documented Gastrointestinal Gastrointestinal: Reports as per HPI Genitourinary Genitourinary: Reports as per HPI Musculoskeletal Musculoskeletal: Reports systems reviewed and no addt'l complaints, except as documented Integumentary Integumentary: Reports systems reviewed and no addt'l complaints, except as documented Neurologic Neurologic: Reports systems reviewed and no addt'l complaints, except as documented Physical Exam Const alert, oriented x3 and no apparent distress HEENT Head and Scalp: normocephalic and atraumatic Neck full ROM and no lymphadenopathy Chest inspection of chest normal Resp normal respiratory effort GI GI Narrative: gravid, abdomen nontender, AGA Manual OB Exam: dilated .5, effaced 10 and station -4 NST FHR Rate Baby A Baseline: 140 Variability:: Moderate Accelerations:: 15 x 15 Decelerations:: None NST Reactive:: Yes FHR Category:: Category I Uterine Activity:: regular q 2-4 Assessment & Plan (1) contractions: COMMENT: seen in triage no PTL 06/14 dc home Charges/Coding Multi Select Codes Visit Charges Office Visit/Consults: 88925 OV L3 Est Urinary/Genital Urinary/Genital CPT Codes: 12196-00 non-stress test Interp
[2022-06-14 22:25] LABS: Mucous, Urine 0 SEEN /hpf (<or=2+); Red Blood Cells-Urine 0 SEEN /hpf (0-5); White Blood Cells 0 SEEN /hpf (0-5)
[2022-06-14 22:33] LABS: Color, Urine Straw (Yellow); Glucose, Dipstick Normal (Normal); Ketone-Dipstick Negative (Negative); Leukocyte Esterase-Dipstick Negative /ul (Negative); Nitrite-Dipstick Negative (Negative); Occult Blood-Urine Negative /ul (Negative); Protein-Dipstick Negative (Negative); Specific Gravity, Urine 1.005 (1.002-1.030); Urine Bilirubin Dipstick Negative (Negative); Urine Clarity Sl. Cloudy (Clear); Urine Urobilinogen Normal (Normal)
[2022-06-14 22:43] LABS: Bacteria RARE /hpf (None Seen); Squamous Epithelial Cells - UA 0-5 SEEN /hpf (5-10)
== END 2022-06-14 23:10 | disposition home or self-care (01) ==
LOC: WPOUT 21:40 → WP 21:40
PROVIDERS: PCP Internal Medicine; Visit Provider Obstetrics & Gynecology
DX: O47.03 False labor before 37 completed weeks of gestation, third trimester (principal); Z3A.30 30 weeks gestation of pregnancy
CPT/HCPCS: 59025; 59050; 81001

== ENCOUNTER → 2022-07-23 | Outpatient (CLI) | payer BC, SELFPAY | END | disposition home or self-care (01) | LOC: LABSPEC 15:06 | PROVIDERS: PCP Internal Medicine; Referring Provider Obstetrics & Gynecology; Visit Provider Obstetrics & Gynecology | DX: Z34.90 Encounter for supervision of normal pregnancy, unspecified, unspecified trimester (principal) | CPT/HCPCS: 87081 ==

== ENCOUNTER → 2022-07-24 | Outpatient (CLI) | payer BC, SELFPAY ==
--- NOTE | 2022-07-24 17:03 | US_ITS ---
STUDY: SECOND AND THIRD TRIMESTER OBSTETRICAL ULTRASOUND - LIMITED REASON FOR EXAM: Female, 32 years old 36 week growth LMP: Unknown. PRIOR ULTRASOUND: None. TECHNIQUE: Transabdominal TECHNICAL QUALITY: Adequate. FINDINGS: There is a single intrauterine fetus. The fetus is in a cephalic presentation. There is demonstrated cardiac activity with a heart rate of 147 bpm. There is a normal amniotic fluid volume. The largest amniotic fluid pocket measures 7.3 cm. The amniotic fluid index (KUMAR) is 19.4 cm. The placenta is fundal in location. There are Grade 1 placental changes. The cervix measures 3.2 cm cm in length. BIOMETRY: BPD: 8.8 cm: 35 weeks, 3 days HC: 32.2 cm: 36 weeks, 3 days AC: 31.8 cm: 35 weeks, 5 days FL: 7.1 cm: 36 weeks, 2 days age by current US: 36 weeks, 0 days. KONRAD by current US: 08/21/2022. Estimated weight: 2810 grams, +/- 421 grams, 46.4 percentile. US/OB Limited With Biometrics IMPRESSION: Single live intrauterine fetus in cephalic presentation with an estimated gestational age of 36 weeks. The KONRAD is to 08/21/2022. Electronically Signed: Antoine Salas MD at 15:53 EST ,
== END | disposition home or self-care (01) ==
LOC: US 16:59
PROVIDERS: PCP Internal Medicine; Referring Provider Obstetrics & Gynecology; Visit Provider Obstetrics & Gynecology
DX: Z34.93 Encounter for supervision of normal pregnancy, unspecified, third trimester (principal)
CPT/HCPCS: 76816

== ENCOUNTER 2022-08-13 09:30 | Inpatient (IN) | payer BC, SELFPAY ==
[2022-08-13] VITALS (19 sets, daily range): BP systolic 99–125; BP diastolic 57–88; PULSE 50–74; RESP 15–18; TEMP 36.2–36.8; O2SAT 96–100; BMI 31.5
[2022-08-13 10:52] LABS: Absolute Lymphocyte Count 2.51 X10^3/uL (0.83-4.51); Absolute Neutrophil Count 4.9 X10^3/uL (2.0-7.7); Basophil# 0.02 X10^3/uL; Basophil% 0.2 % (0-1); Eosinophil# 0.08 X10^3/uL; Hematocrit 31.2 % (37-47); Hemoglobin 10.7 g/dL (12.0-15.0); Lymphocyte # 2.51 X10^3/ul (0.83-4.51); Lymphocyte % 30.3 % (19-41); Mean Corp Hgb Conc 34.3 g/dL (32-36); Mean Platelet Vol. 12.6 fl (6.2-12.0); Monocyte# 0.71 X10^3/uL; Monocyte% 8.6 % (0-10); NRBC Flagged by Analyzer 0 % (0-5); Neutrophil # 4.94 X10^3/uL (2.7-7.7); Neutrophil % 59.7 % (47-70); Platelet Count 135 K/mm3 (150-450); RBC Distribution Width CV 13.2 % (11.6-14.6); RBC Distribution Width SD 49.6 fl (35.1-43.9); Red Blood Count 3.06 M/mm3 (4.2-5.4); White Blood Count 8.3 K/mm3 (4.4-11.0)
--- NOTE | 2022-08-13 11:07 | HP.PCM.OB_ITS ---
HPI - General General Date of Admission: 08/13/22 HPI Narrative ARGENIS SANTOS, is a 32 F who presents for LTCS sec to history of should dystocia. Maternal Data Information KONRAD Calculator Estimated Delivery Date Method Current WG Current Estimate 08/20/22 LMP (Certain) 39w 0d PFSH PFS Medical History Anemia Depression Lab test negative for COVID-19 virus Preventative health care Seasonal allergies URI (upper respiratory infection) Home Medications cetirizine 10 mg capsule (Zyrtec) 10 mg PO DAILY allergies 05/11/19 [History Last Taken 1 Day Ago ~08/12/22] vitamin#30 30 mg iron-10 mg iron-folic acid 1 mg-omg3 capsule 1 cap PO DAILY 05/11/19 [History Last Taken 1 Day Ago ~08/12/22] psyllium husk 0.52 gram capsule (Daily Fiber) 0.52 g PO DAILY fiber 05/11/19 [History Last Taken 1 Day Ago ~08/12/22] fluticasone prop.50 mcg spray,suspen-sod.chloride 0.9% nasal spray kit 1 ea intranasal PRN PRN Allergy Symptoms 05/27/22 [History Last Taken 3 Days Ago ~08/10/22] Allergy/AdvReac Type Severity Reaction Status Date / Time amoxicillin Allergy Intermediate Rash Verified 08/06/22 13:22 Family History Mother Thyroid disorder Depression Arthritis Brother Depression Grandfather Alcoholism Schizophrenia Kidney disease Grandmother Diabetes Social History Smoking Status: Never smoker alcohol intake: current alcohol intake frequency: a few times a month Alcohol type: beer details: pre substance use type: does not use what type of physical activity do you participate in: none frequency: 3-4 times per week seatbelt use: always do you feel safe at home: Yes additional social history: 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 Date Name GA/Weeks Outcome Route Bth Weight Gen Labor Lgth Anesthesia Del Locatn Provider FOB 12/16/19 Vance 40 live - full term 8lbs 15oz Male [facility] Dr. Deann Meeks Delivery Date: 12/16/19 Last Updated by: Farideh Hong 3rd degree laceration, moderate shoulder dytocia Visit Details Expected Delivery Route/Plan if weight low enough, discussed primary due to history of shoulder dystocia and third deggre laceration, patient wishes to proceed unless spontaneous labor in the 37th week. Labor Preferences- CB/BF classes: no labor support person: Judah labor intervention preferences: [] pain management options preferred: epidural cut cord/dad catch: cord : yes PP control planned: discussed considering vasectomy discussed possible routes of delivery and associated risks: [] special requests: [] Plans Covid status: discussed Flu vaccine: at employer Tdap vaccine: [] Rhogam: na LARC form signed: yes Problem list reviewed and updated with the most current plan of care details and appropriate orders placed. Relevant counseling for the gestational age provided. Continue routine care and follow up unless otherwise noted in visit notes/problem list details OB Flowsheet Initial Weight: Not Recorded Date -?-?-?-?-?-?-?-?-?-?-?-?- EGA Weight BP Urine Prot -?-?-?-?-?-?-?-?-?-?-?-?- Glucose FHR FuHt Pres Dilation -?-?-?-?-?-?-?-?-?-?-?-?- Effaced St Visit Note 01/15/22 -?-?-?-?-?-?-?-?-?-?-?-?- 9w 0d 181 lb 113/62 -?-?-?-?-?-?-?-?-?-?-?-?- 170 -?-?-?-?-?-?-?-?-?-?-?-?- SM- CRL 2.3cm co ns with LMP 02/10/22 -?-?-?-?-?-?-?-?-?-?-?-?- 12w 5d 179 lb 126/78 Negative -?-?-?-?-?-?-?-?-?-?-?-?- Negative 160 -?-?-?-?-?-?-?-?-?-?-?-?- SM- no vb crampi ng still nausea. 03/13/22 -?-?-?-?-?-?-?-?-?-?-?-?- 17w 1d 178 lb 8 oz 112/60 Nega tive -?-?-?-?-?-?-?-?-?-?-?-?- Negative 154 -?-?-?-?-?-?-?-?-?-?-?-?- JV- no lof, vagi nal bleeding, or cramping. anatomy ultrasound ordered. 04/10/22 -?-?-?-?-?-?-?-?-?-?-?-?- 21w 1d 184 lb 101/67 Negative -?-?-?-?-?-?-?-?-?-?-?-?- Negative 134 -?-?-?-?-?-?-?-?-?-?-?-?- JV- no lof, vagi nal bleeding, or cramping. info on covid vaccine given. 05/08/22 -?-?-?-?-?-?-?-?-?-?-?-?- 25w 1d 185 lb 116/66 Negative -?-?-?-?-?-?-?-?-?-?-?-?- Negative 140 25 -?-?-?-?-?-?-?-?-?-?-?-?- SM- no vb lof go od fm no regular ctx 05/27/22 -?-?-?-?-?-?-?-?-?-?-?-?- 27w 6d 187 lb 6 oz 110/68 Nega tive -?-?-?-?-?-?-?-?-?-?-?-?- Negative 151 27 -?-?-?-?-?-?-?-?-?-?-?-?- MH-No VB, LOF. G ood FM. Larc. 28 wk labs. 06/10/22 -?-?-?-?-?-?-?-?-?-?-?-?- 29w 6d 188 lb 8 oz 98/63 Nega tive -?-?-?-?-?-?-?-?-?-?-?-?- Negative 143 29 -?-?-?-?-?-?-?-?-?-?-?-?- LC- no vb,lof,ct x. good FM. started iron, repeat cbc order placed. tdap given today. 06/25/22 -?-?-?-?-?-?-?-?-?-?-?-?- 32w 0d 191 lb 122/68 Negative -?-?-?-?-?-?-?-?-?-?-?-?- Negative 145 33 -?-?-?-?-?-?-?-?-?-?-?-?- SM- no vb lof go od fm no regualr ctx but asher nunes on and off 07/09/22 -?-?-?-?-?-?-?-?-?-?-?-?- 34w 0d 191 lb 100/65 Negative -?-?-?-?-?-?-?-?-?-?-?-?- Negative 147 33 -?-?-?-?-?-?-?-?--?-?-?-?- JV- growth ultr asound ordered. today we discussed vs vaginal delivery. she is tearful stating that she had a very difficult recovery including months of PT for 3rd degree tear. She still feels abnormal rectal tissue protusion. She does not want to attempt a vaginal delivery if baby is going to be over 8 lbs. 07/23/22 -?-?-?-?-?-?-?-?-?-?-?-?- 36w 0d 196 lb 8 oz 119/70 Nega tive -?-?-?-?-?-?-?-?-?-?-?-?- Negative 145 36 -?-?-?-?-?-?-?-?-?-?-?-?- JV- growth scan is now scheduled for tomorrow. GBS collected. will call with results 07/31/22 -?-?-?-?-?-?-?-?-?-?-?-?- 37w 1d 195 lb 2 oz 116/79 Nega tive -?-?-?-?-?-?-?-?-?-?-?-?- Negative 145 38 Cephalic -?-?-?-?-?-?-?-?-?-?-?-?- Sm- no vb lof go od fm no regular ctx 08/06/22 -?-?-?-?-?-?-?-?-?-?-?-?- 38w 0d 199 lb 116/74 Negative -?-?-?-?-?-?-?-?-?-?-?-?- Negative 139 38 -?-?-?-?-?-?-?-?-?-?-?-?- JV- some irregul ar contractions. consent for section signed today. no complaints. 08/13/22 -?-?-?-?-?-?-?-?-?-?-?-?- 39w 0d 195 lb 8.8 oz -?-?-?-?-?-?-?-?-?-?-?-?- -?-?-?-?-?-?-?-?-?-?-?-?- NST FHR Rate Baby A Baseline: 130 ROS Constitutional Constitutional: Reports systems reviewed and no addt'l complaints, except as documented Eyes Eyes: Denies change in vision ENT HEENT: Reports systems reviewed and no addt'l complaints, except as documented; Denies headache(s) Cardiovascular Cardiovascular: Reports systems reviewed and no addt'l complaints, except as documented; Denies chest pain or dyspnea Respiratory/Chest Respiratory/Chest: Reports systems reviewed and no addt'l complaints, except as documented Gastrointestinal Gastrointestinal: Reports systems reviewed and no addt'l complaints, except as documented; Denies abdominal pain Genitourinary Genitourinary: Reports systems reviewed and no addt'l complaints, except as documented, contractions Details: present (irregular) and movement Details: present; Denies dysuria or genital lesions Musculoskeletal Musculoskeletal: Reports systems reviewed and no addt'l complaints, except as documented Neurologic Neurologic: Reports systems reviewed and no addt'l complaints, except as documented Endocrine Endocrinology: Reports systems reviewed and no addt'l complaints, except as documented Vital Signs Vital Signs Vital Signs: Weight Weight: 195 lb 8.8 oz Body Mass Index (BMI) 31.5 Physical Exam Const alert, oriented x3, no apparent distress and healthy appearing HEENT normocephalic and moist oral mucous membranes Head and Scalp: atraumatic Neck full ROM, no lymphadenopathy, supple and thyroid normal General: trachea midline Lymph Lymphatic: no lymphadenopathy noted Chest inspection of chest normal Resp normal respiratory effort Cardio regular rate GI normal to inspection, nondistended, normoactive bowel sounds, soft to palpation and non-tender Inspection: gravid external exam normal Manual OB Exam: estimated gestational size appropriate, presentation cephalic, dilated, effaced and station Extremity normal to inspection General Extremity: Negative for edema Skin no rashes or lesions noted Neuro no focal motor deficits and deep tendon reflexes 2+ bilaterally Motor Exam: strength 5/5 throughout and clonus absent Psych mental status grossly normal Labs Labs Labs: Blood Type O POSITIVE Antibody Screen NEGATIVE Hct 31.2 % (37-47) L Hgb 10.7 g/dL (12.0-15.0) L Pap Smear Negative Obstetrics US Syphilis Total Ab Non-reactive Rubella IgG Antibody Reactive (Nonreactive) Hep Bs Antigen Non-Reactive (Nonreactive) Chlamydia DNA (SHERRIE) Negative (Negative) Neisseria gonorrhoeae DNA (SHERRIE) Negative (Negative) HIV 1&2 Antibody Non-Reactive (Nonreactive) Glucose 1 Hr 50 gm 118 mg/dL (70-140) Rhogam given: No Miscellaneous Test Assessment & Plan (1) Anemia in preg-unspec: COMMENT: start FE and rpt CBC 4 wk (2) Family history of paroxysmal supraventricular tachycardia: COMMENT: previous son developed after , treated with digoxin for 6-9 months, resolved. (3) History of depression: COMMENT: no meds; stable (4) : QUALIFIERS: Weeks of gestation: 38 weeks Qualified Code(s): Z3A.38 - 38 weeks gestation of COMMENT: GBS negative, nipt low risk, 04/09 nl anatomy (5) Supervision of normal : COMMENT: PRR KONRAD 08/20/22, girl Lindsey, PC Vance Judah (6) History of shoulder dystocia: COMMENT: discussed options and plan ltcs for . LTCS scheduled for 08/13 @ 12. PLAN: Plan After discussing the patient's diagnosis and treatment plan options, patient wishes to proceed with surgical management. I have discussed with the patient the risks, benefits, and alternatives of the procedure which include but are not limited to risks of anesthesia, bleeding, infection, possible damage to bowel, bladder, or surrounding vasculature which could lead to additional surgery to evaluate any complications. Patient agrees to procedure and wishes to proceed. ACOG/uptodate references given for additional information regarding procedure.
--- NOTE | 2022-08-13 11:08 | EX.PCM.OBRPT ---
Assessment & Plan (1) History of shoulder dystocia: COMMENT: discussed options and plan ltcs for . LTCS scheduled for 08/13 @ 12. (2) Supervision of normal : COMMENT: PRR KONRAD 08/20/22, girl Lindsey, PC Vance Judah (3) : QUALIFIERS: Weeks of gestation: 38 weeks Qualified Code(s): Z3A.38 - 38 weeks gestation of COMMENT: GBS negative, nipt low risk, 04/09 nl anatomy (4) History of depression: COMMENT: no meds; stable (5) Family history of paroxysmal supraventricular tachycardia: COMMENT: previous son developed after , treated with digoxin for 6-9 months, resolved. (6) Anemia in preg-unspec: COMMENT: start FE and rpt CBC 4 wk Maternal Data Information KONRAD Calculator Estimated Delivery Date Method Current WG Current Estimate 08/20/22 LMP (Certain) 39w 1d Final KONRAD Source: LMP Details Operative Information Date of Procedure: 08/14/22 Pre-Operative Diagnosis: Previous Post-Operative Diagnosis: same Indications Narrative: previous shoulder dystocia Classification: Scheduled Type of Anesthesia: Spinal Special Medications: none Antibiotic Given: Clindamycin 600mg IV x1 and Gentamicin 1.5mg/kg IV x1 Drain: Go to straight drain Estimated Blood Loss: 600 Fluids Replaced: crystalloid Findings Description of Procedure: Spinal anesthesia was placed without difficulty. Go catheter was placed. The patient was placed in the dorsal supine position with leftward tilt. Patient was prepped and draped in the normal sterile fashion. Pfannenstiel skin incision was made with the scalpel and carried through to the underlying layer of fascia with the scalpel. Fascia was nicked in the midline and the incision extended laterally. The rectus bellies were dissected off superiorly and inferiorly with out complication both sharply and bluntly. The peritoneum was entered digitally. The incision was stretched and a low transverse uterine incision was made with the scalpel. The 's head was delivered atraumatically followed by the anterior and posterior shoulders without complication the rest of the infant delivered. The cord was clamped and cut and the infant was handed off to awaiting nurse. The placenta was delivered spontaneously immediately following and was noted to be intact and have a three-vessel cord. The uterus was exteriorized cleared of all clots and debris, and the incision was closed in a single layer closure using #1 Monocryl. The ovaries and fallopian tubes were noted to be within normal limits. The uterus was returned to the maternal abdomen and gutters were cleared of all clots and debris. The peritoneum was closed with 3-0 Monocryl in a running fashion. Gloves were changed prior to fascial closure. Fascia was closed with 0 PDS in a running fashion. Subcutaneous tissue was copiously irrigated and the skin was closed with 3-0 Monocryl in a subcuticular fashion. Mepilex dressing was applied without complication. Patient was taken to recovery in stable condition. Amniotic Membrane Rupture Type: Artificial Amniotic Fluid Description: Clear Placenta Disposition: [facility] Cord Vessel Description: 3 Vessels Cord Entanglement: None Delayed Cord Clamping: Yes Complications Risks of Surgery Discussed w/Patient: Bleeding, Infection, Need for Future C-Sections and Injury to surrounding structure(s) including bowel and bladder Vaginal Delivery Complication Complications: None Admit VTE Documentation VTE Present on Admission: No VTE Mechan Device Prophylaxis: SCD's Procedures Urinary/Genital [id number]: [id number] Delivery [facility]
[2022-08-13] MEDS: Lactated Ringers 1,000 ML 999 ML IV (11:32)
[2022-08-13] MEDS: Acetaminophen 500 MG Tablet 1000 MG PO ×3 (11:32→23:30)
[2022-08-13] MEDS: Sodium Citrate/Citric Acid 30 ML UDC PO (11:32)
[2022-08-13] MEDS: Lactated Ringers 1,000 ML 150 ML IV (11:37)
[2022-08-13] MEDS: Clindamycin 900 MG/50 ML BAG 75 MG IV (12:29)
[2022-08-13] MEDS: Oxytocin 15 Units/NS 250ml 15 UNITS/250 ML IV.SOLN 83 UNITS IV (13:28)
[2022-08-13] MEDS: Ketorolac 30 MG/ML Syringe IV ×2 (15:39→21:31)
[2022-08-13] MEDS: 0.9% Saline Lock 10 ML Syringe IV ×2 (17:34→21:32)
[2022-08-14] MEDS: hydrOXYzine PAM 25 MG Capsule 50 MG PO ×3 (00:34→16:28)
--- NOTE | 2022-08-14 02:33 | DCINST_ITS ---
Discharge Instructions Diet Discharge Diet: No restrictions Activity Discharge Activity: Return to Normal Activity, May Drive (when pain free and off narcotic pain meds), May Shower and May Take a Tub Bath (in 4 weeks) May resume sexual activity in: 6 weeks Weight Bearing Status: Full weight bearing Lifting Restrictions: under 30 lbs for 6 weeks Dressing / Incision Call your doctor if your incision/area has: Continuous Slow Oozing, Sudden Increased Bleeding, Increased Pain/ Swelling, Increased Redness, Foul Smelling Discharge and - Call your doctor if you observe: Fever of 101 or Higher, Using more than 1 pad per hour, Shortness of breath, Chest pain and Uncontrolled pain Suture Line Care: Avoid Pulling/Pushing and Avoid Pinching/Bending Change Dressing in: 1 week (leave open to air after removed) Remove Dressing in: 1 week (if present) Cleanse incision/area with: Soap & Water and Keep Dressing Clean & Dry Follow Up Care Please Follow Up With: Deann Meeks MD When: Call to make an appointment with your doctor for a postop visit in 2 and 6 weeks. Test Results: Test results from this visit will be discussed in further detail at your follow- up appointment, if applicable. Discharge Plan Admission Admit Date/Time: 08/13/22 09:30 Attending Provider: Deann Meeks Primary Care Provider: Landon Garcia Discharge Orders/Prescriptions Prescriptions: New oxycodone-acetaminophen [Percocet] 5-325 mg tablet 1 tab PO Q6H PRN (Reason: pain) 7 Days Qty: 20 0RF naproxen [naproxen] 500 mg tablet 500 mg PO BID PRN PRN (Reason: Pain) Qty: 30 1RF Continued Zyrtec 10 mg capsule 10 mg PO DAILY vitamin#30 30 mg iron-10 mg iron-folic acid 1 mg-omg3 capsule 30 mg iron-10 mg iron-1 mg capsule 1 cap PO DAILY psyllium husk [Daily Fiber] 0.52 gram capsule 0.52 g PO DAILY fluticasone prp-sod.chl,bicarb 50 mcg- 0.9 % kit,spray suspension and spray 1 ea intranasal PRN PRN (Reason: Allergy Symptoms) ferrous sulfate 65 mg PO/SL DAILY Referrals / Follow Up: Landon Garcia MD [Primary Care Provider] - Disposition Disposition (needs filled in before D/C Order can be placed): Home, Self Care
[2022-08-14 03:43] VITALS: BP 96/58; PULSE 54; RESP 16; TEMP 36.8; O2SAT 96
[2022-08-14] MEDS: 0.9% Saline Lock 10 ML Syringe IV ×2 (03:47→09:35)
[2022-08-14] MEDS: Ketorolac 30 MG/ML Syringe IV ×2 (03:48→09:35)
--- NOTE | 2022-08-14 05:38 | PCM.PN.OB ---
Subjective Subjective Patient doing well without complaints. Tolerating PO. Ambulating without difficulty.not voiding yet. infant feeding well. Denies chest pain, shortness of breath, calf pain/swelling, fevers, chills, lightheadedness. Objective Data Objective Data Vital Signs: Vital Signs Temp Pulse Resp BP Pulse Ox O2 Del Method 98.2 F 54 L 16 96/58 L 96 Room Air 08/14/22 03:43 08/14/22 03:43 08/14/22 03:43 08/14/22 03:43 08/14/22 03:43 08/14/22 03:43 Oxygen Delivery Method Room Air Weight: 195 lb 8.8 oz Body Mass Index (BMI) 31.5 Intake & Output: Intake and Output for Last 24 Hours 08/12/22 08/13/22 08/14/22 23:59 23:59 23:59 Intake Total 3176.5 / 3176.5 Output Total 1300 / 1300 Balance 1876.5 / 1876.5 Lab / Micro Data Result Diagrams: 08/13/22 10:40 Labs: Laboratory Results - last 24 hr 08/13/22 10:40: WBC 8.3, RBC 3.06 L, Hgb 10.7 L, Hct 31.2 L, MCV 102.0 H, MCH 35.0 H, MCHC 34.3, RDW Std Deviation 49.6 H, RDW Coeff of Ron 13.2, Plt Count 135 L, MPV 12.6 H, Immature Gran % (Auto) 0.200, Neut % (Auto) 59.7, Lymph % (Auto) 30.3, Vernon % (Auto) 8.6, Eos % (Auto) 1.0, Baso % (Auto) 0.2, Absolute Neuts (auto) 4.9, Absolute Lymphs (auto) 2.51, Nucleated RBC % 0 08/13/22 10:40: Blood Type O POSITIVE, Antibody Screen NEGATIVE ROS Constitutional Constitutional: Reports systems reviewed and no addt'l complaints, except as documented Cardiovascular Cardiovascular: Reports systems reviewed and no addt'l complaints, except as documented Respiratory/Chest Respiratory/Chest: Reports systems reviewed and no addt'l complaints, except as documented Gastrointestinal Gastrointestinal: Reports systems reviewed and no addt'l complaints, except as documented Physical Exam Const alert, oriented x3 and no apparent distress HEENT Head and Scalp: atraumatic Resp normal respiratory effort GI soft to palpation and non-tender Inspection: incision intact, healing well and drainage (none) Bimanual Exam - Vag & Uterus: uterus non-tender Uterus Palpation: uterus fundus firm (below Umbilicus) Assessment & Plan (1) delivery delivered: COMMENT: LTCS girl Summer PLAN: Plan s/p LTCS PPD # 1 1. routine post care 2. breast feeding- support given 3. rh positive 4. rubella immune
[2022-08-14] MEDS: Acetaminophen 500 MG Tablet 1000 MG PO ×3 (05:46→17:49)
[2022-08-14 06:02] LABS: Hematocrit 29.1 % (37-47); Hemoglobin 9.9 g/dL (12.0-15.0); Mean Corpuscular Hgb 34.7 pg (27.0-32.0); Mean Corpuscular Volume 102.1 fL (81-99); Mean Platelet Vol. 12.8 fl (6.2-12.0); Platelet Count 118 K/mm3 (150-450); RBC Distribution Width CV 13.2 % (11.6-14.6); RBC Distribution Width SD 49.6 fl (35.1-43.9); Red Blood Count 2.85 M/mm3 (4.2-5.4); White Blood Count 10.2 K/mm3 (4.4-11.0)
[2022-08-14 08:48] VITALS: BP 99/63; PULSE 53; RESP 16; TEMP 36.3; O2SAT 100
[2022-08-14] MEDS: Senna/Docusate Sodium 1 Tablet PO (09:35)
--- NOTE | 2022-08-14 11:37 | CASEMGMT ---
Note Referral Source: ?Arielle, screw machine tender Referral Reason: History of depression MICHAEL met with MOB, FOB and MOB?s mother in the room at . MOB gave verbal consent for this securities underwriter to speak to her in the presence of her guest and FOB. SW updated Jenniffer RN after meeting with the MOB and updated her that this securities underwriter had seen patient and Jenniffer voiced no concerns. Mom: Eun Wade PNC: [facility] Control: to get vastecomy Baby: Summer : 08/13/[birth year] Apgars: 8/8 Weight: 7# 13 ounces Strap Buckler: ?Seifried MOB reports is going ?great?. MOB' other children: Vance, age 2 ?. Vance was being watched by the MOB?s mother however, is currently in daycare. Housing: MOB, FOB, Vance and nb reside in a home. Home is adequate. Transportation: MAINOR reports that she has access to vehicle and is able to drive when medically cleared. Supplies: MOB reports she has carseat, bassinette, crib, clothes and diapers for the nb. Support: MOB said that her support will be her , Judah. MOB said that she also has family that is supportive. MOB said that her mother can also assist with any post needs. MOB reports that her family resides in [place]. Education Level: ?MAINOR completed high school, college and has her master?s degree in social work. No learning issues. 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 MOB said that she has been at her current job for 5 years. MOB will be taking 3 months off work. Patient?s oldest chid, Vance, goes to daycare. Agency Involvement: MOB reports no JFS, WIC, HMB, Legal or CSB issues. MOB reports counseling in the past. 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 He will be off work for 1 month Other Children: Vance ZURDO MH/ AOD/DV : FOB denied Maternal MH History: MOB said that there is a family history of depression. MOB said that she does not believe she has been diagnosed with depression. MOB said that she had undiagnosed PPD. MOB said that during the post period she was ?depressed and angry?. FOB said that he feels that patient post depression was related to the medical issues and the being more difficult. MOB said that this has been ?very different?. MOB voiced that with the first child there were many unknowns regarding care of the child as well as medical issues with the first child ( child was tachycardia on day 1- and required digoxin therapy).Patient denied any current or past SI/HI and denied any psych hospitalization. Patient was educated on PPD and when to seek help and assistance. MOB and FOB were educated on Shaken Baby Syndrome, PPD and Safe Sleeping. MOB reports no alcohol or drug use during . MOB drank alcohol (beer a couple of times a month) prior to . MOB is not a smoker. MOB completed PHQ-2 with score of 0. Sw provided the MOB with handout resources on PPD/PPA which included information on phone and on line support and local resources. Plan: Home at discharge Lolita HYDE
--- NOTE | 2022-08-14 11:52 | CM.ED ---
MICHAEL went to worklist to clear patient and NB for discharge however no order put in. MICHAEL has updated the White Board in the Nursing break room that nb is clear for discharge and also updated the RN. Lolita HYDE
--- NOTE | 2022-08-14 12:12 | NURSING ---
MOB voided twice, first void was only droplets. Second void was not measured but bladder does not feel distended per this RN's assessment and patient reports that she feels that she fully emptied her bladder. This RN put hat in toilet and instructed MOB not to move the hat so next void can be measured.
[2022-08-14 13:07] VITALS: BP 99/56; PULSE 56; RESP 16; TEMP 36.8; O2SAT 96
[2022-08-14] MEDS: Naproxen 500 MG Tablet PO (15:58)
[2022-08-14 16:00] VITALS: BP 112/69; PULSE 60; RESP 16; TEMP 36.6; O2SAT 96
[2022-08-14] MEDS: oxyCODONE 5 MG Tablet PO (19:11)
[2022-08-14 19:40] VITALS: BP 115/73; PULSE 58; RESP 16; TEMP 36.6
[2022-08-15] MEDS: Naproxen 500 MG Tablet PO ×2 (00:03→08:53)
[2022-08-15] MEDS: Acetaminophen 500 MG Tablet 1000 MG PO ×2 (00:03→06:04)
[2022-08-15 02:20] VITALS: BP 105/72; PULSE 60; RESP 17; TEMP 36.7
[2022-08-15] MEDS: Senna/Docusate Sodium 1 Tablet PO (08:53)
[2022-08-15 08:57] VITALS: BP 116/72; PULSE 77; RESP 14; TEMP 36.5; O2SAT 96
--- NOTE | 2022-08-15 09:27 | PCM.DC.BLA ---
Discharge Summary Date of Admission: 08/13/22 Date of Discharge: 08/15/22 Summary: Patient arrived on 08/13/2022 for scheduled repeat section. Repeat section on 08/13/2022. Routine post operative recovery. Discharge home on 08/15/2022 Meaningful Use Info Meaningful Use Diagnoses (Choose all that apply): None applicable Discharge Plan Admission Admit Date/Time: 08/13/22 09:30 Primary Reason for Your Visit: Repeat section Attending Provider: Deann Meeks Primary Care Provider: Landon Garcia Instructions Additional Instructions / Restrictions: Regular diet. Okay to shower. No tub baths for 2 weeks. No intercourse for 4 to 6 weeks. No lifting over 25 pounds for 2 to 3 weeks. Call if fevers, chills, chest pain, shortness of breath. Follow-up 1-2 week incision check Discharge Orders/Prescriptions Prescriptions: New oxycodone-acetaminophen [Percocet] 5-325 mg tablet 1 tab PO Q6H PRN (Reason: pain) 7 Days Qty: 20 0RF naproxen [naproxen] 500 mg tablet 500 mg PO BID PRN PRN (Reason: Pain) Qty: 30 1RF Continued Zyrtec 10 mg capsule 10 mg PO DAILY vitamin#30 30 mg iron-10 mg iron-folic acid 1 mg-omg3 capsule 30 mg iron-10 mg iron-1 mg capsule 1 cap PO DAILY psyllium husk [Daily Fiber] 0.52 gram capsule 0.52 g PO DAILY fluticasone prp-sod.chl,bicarb 50 mcg- 0.9 % kit,spray suspension and spray 1 ea intranasal PRN PRN (Reason: Allergy Symptoms) ferrous sulfate 65 mg PO/SL DAILY Referrals / Follow Up: Landon Garcia MD [Primary Care Provider] - Disposition Disposition (needs filled in before D/C Order can be placed): Home, Self Care
--- NOTE | 2022-08-15 09:28 | PCM.PN.OB ---
Subjective Subjective No overnight complaints. Pain well controlled. Tolerating regular diet. Ambulating. Voiding spontaneously Objective Data Objective Data Vital Signs: Vital Signs Temp Pulse Resp BP Pulse Ox O2 Del Method 97.7 F L 77 14 116/72 96 Room Air 08/15/22 08:57 08/15/22 08:57 08/15/22 08:57 08/15/22 08:57 08/15/22 08:57 08/15/22 08:57 Oxygen Delivery Method Room Air Weight: 195 lb 8.8 oz Body Mass Index (BMI) 31.5 Intake & Output: Intake and Output for Last 24 Hours 08/13/22 08/14/22 08/15/22 23:59 23:59 23:59 Intake Total 3176.5 / 3176.5 Output Total 1300 / 1300 1100 / 1100 Balance 1876.5 / 1876.5 -1100 / -1100 Lab / Micro Data Result Diagrams: 08/14/22 05:50 Physical Exam Const alert, oriented x3, no apparent distress, average body habitus, healthy appearing and well nourished HEENT normocephalic and moist oral mucous membranes Eyes PERRL Neck full ROM Resp normal respiratory effort, no retractions and no use of accessory muscles GI GI Narrative: Soft, nontender, bandage clean dry and intact Extremity normal to inspection, full ROM and no clubbing, cyanosis or edema Neuro moves all extremities and no focal motor deficits Psych mental status grossly normal, affect normal, speech normal and activity/motor behavior normal Assessment & Plan (1) delivery delivered: COMMENT: [facility] girl Summer PLAN: Postop day 2 status post repeat section. Breast-feeding. Pain well controlled. Okay to discharge home today
== END 2022-08-15 10:10 | disposition home or self-care (01) | DRG 788 ==
PROVIDERS: Obstetrics & Gynecology; Admitting Provider Obstetrics & Gynecology; PCP Internal Medicine; Visit Provider Obstetrics & Gynecology
PROC: 10D00Z1 Extraction of Products of Conception, Low, Open Approach (ICD-10-PCS; CPT 59514; principal; 2022-08-13 11:45)
DX: O99.02 Anemia complicating childbirth (principal); Z37.0 Single live birth; Z3A.39 39 weeks gestation of pregnancy; Z87.59 Personal history of other complications of pregnancy, childbirth and the puerperium; Z82.49 Family history of ischemic heart disease and other diseases of the circulatory system
CPT/HCPCS: 59050; 85025; 85027; 86850; 86900; 86901; 99221; J7120; A4216; G0378

== ENCOUNTER → 2024-04-07 | Outpatient (CLI) | payer BC, SELFPAY ==
[2024-04-07 12:16] LABS: Absolute Neutrophil Count 1.7 X10^3/uL (2.0-7.7); Basophil# 0.03 X10^3/uL; Basophil% 0.7 % (0-1); Eosinophil# 0.34 X10^3/uL; Eosinophils% 7.6 % (0-5); Hematocrit 37.8 % (37-47); Hemoglobin 12.2 g/dL (12.0-15.0); Lymphocyte % 44.7 % (19-41); Mean Corp Hgb Conc 32.3 g/dL (32-36); Mean Corpuscular Hgb 32.7 pg (27.0-32.0); Mean Corpuscular Volume 101.3 fL (81-99); Mean Platelet Vol. 12.4 fl (6.2-12.0); Monocyte# 0.44 X10^3/uL; Monocyte% 9.8 % (0-10); NRBC Flagged by Analyzer 0 % (0-5); Neutrophil # 1.65 X10^3/uL (2.7-7.7); Platelet Count 195 K/mm3 (150-450); RBC Distribution Width CV 12.5 % (11.6-14.6); RBC Distribution Width SD 47.1 fl (35.1-43.9); Red Blood Count 3.73 M/mm3 (4.2-5.4); White Blood Count 4.5 K/mm3 (4.4-11.0)
[2024-04-07 12:44] LABS: ALB/GLOB Ratio 1.1 RATIO (0.9-2.4); AST(SGOT) 13 U/L (15-37); Alanine Aminotransfer ALT/SGPT 18 U/L (13-56); Albumin, Serum 3.9 g/dL (3.2-5.0); Alkaline Phosphatase 52 U/L (45-117); Anion Gap 6 (5-15); BUN 10 mg/dL (7-18); BUN/Creat Ratio 12.2 RATIO (10-20); Calcium,Total 9.1 mg/dL (8.5-10.1); Chloride 111 mmol/L (98-107); Cholesterol 145 mg/dL (200); Creatinine, Serum 0.82 mg/dL (0.55-1.02); EST Glomerular Filtration Rate 85 mL/min (>60); Est Glom Filt Rate - Afr Amer 102 mL/min (>60); Globulin 3.4 g/dL (2.2-4.2); Glucose 76 mg/dL (74-106); High Density Lipoprotein 32 mg/dL; Potassium 4.4 mmol/L (3.5-5.1); Protein, Total 7.3 g/dL (6.4-8.2); Sodium Level 142 mmol/L (136-145); Triglycerides 93 mg/dL; Very Low Density Lipoprotein 19 mg/dL (5-40)
== END | disposition home or self-care (01) ==
LOC: BIMLAB 08:42
PROVIDERS: PCP Internal Medicine; Referring Provider Internal Medicine; Visit Provider Internal Medicine
DX: Z00.00 Encounter for general adult medical examination without abnormal findings (principal)
CPT/HCPCS: 36415; 80053; 80061; 85025

== ENCOUNTER → 2024-04-11 | Outpatient (CLI) | payer BC, SELFPAY ==
[2024-04-11 15:21] LABS: Absolute Lymphocyte Count 2.39 X10^3/uL (0.83-4.51); Absolute Neutrophil Count 2.2 X10^3/uL (2.0-7.7); Basophil# 0.02 X10^3/uL; Basophil% 0.4 % (0-1); Eosinophil# 0.34 X10^3/uL; Eosinophils% 6.3 % (0-5); Hemoglobin 11.7 g/dL (12.0-15.0); Lymphocyte # 2.39 X10^3/ul (0.83-4.51); Lymphocyte % 44.4 % (19-41); Mean Corp Hgb Conc 32.5 g/dL (32-36); Mean Corpuscular Hgb 32.7 pg (27.0-32.0); Mean Corpuscular Volume 100.6 fL (81-99); Mean Platelet Vol. 12.2 fl (6.2-12.0); Monocyte# 0.38 X10^3/uL; Monocyte% 7.1 % (0-10); NRBC Flagged by Analyzer 0 % (0-5); Neutrophil # 2.24 X10^3/uL (2.7-7.7); Neutrophil % 41.6 % (47-70); Platelet Count 204 K/mm3 (150-450); RBC Distribution Width CV 12.3 % (11.6-14.6); Red Blood Count 3.58 M/mm3 (4.2-5.4); White Blood Count 5.4 K/mm3 (4.4-11.0)
[2024-04-11 15:45] LABS: Vitamin B12 267 pg/mL (211-911)
== END | disposition home or self-care (01) ==
LOC: BIMLAB 11:20
PROVIDERS: PCP Internal Medicine; Visit Provider Internal Medicine
DX: D72.9 Disorder of white blood cells, unspecified (principal)
CPT/HCPCS: 36415; 82607; 82746; 85025

== ENCOUNTER → 2024-05-17 | Outpatient (CLI) | payer BC, SELFPAY ==
[2024-05-17 12:12] LABS: Absolute Lymphocyte Count 2.43 X10^3/uL (0.83-4.51); Absolute Neutrophil Count 3.4 X10^3/uL (2.0-7.7); Basophil# 0.06 X10^3/uL; Basophil% 0.9 % (0-1); Eosinophil# 0.53 X10^3/uL; Eosinophils% 7.7 % (0-5); Hematocrit 36.5 % (37-47); Hemoglobin 12.1 g/dL (12.0-15.0); Lymphocyte # 2.43 X10^3/ul (0.83-4.51); Lymphocyte % 35.5 % (19-41); Mean Corp Hgb Conc 33.2 g/dL (32-36); Mean Corpuscular Hgb 33.4 pg (27.0-32.0); Mean Corpuscular Volume 100.8 fL (81-99); Mean Platelet Vol. 12.2 fl (6.2-12.0); Monocyte# 0.45 X10^3/uL; Monocyte% 6.6 % (0-10); NRBC Flagged by Analyzer 0 % (0-5); Neutrophil # 3.37 X10^3/uL (2.7-7.7); Neutrophil % 49.2 % (47-70); Platelet Count 183 K/mm3 (150-450); RBC Distribution Width CV 12.2 % (11.6-14.6); RBC Distribution Width SD 45.5 fl (35.1-43.9); Red Blood Count 3.62 M/mm3 (4.2-5.4); White Blood Count 6.9 K/mm3 (4.4-11.0)
[2024-05-17 15:52] LABS: Vitamin B12 821 pg/mL (211-911)
== END | disposition home or self-care (01) ==
LOC: BIMLAB 11:12
PROVIDERS: PCP Internal Medicine; Referring Provider Internal Medicine; Visit Provider Internal Medicine
DX: E53.8 Deficiency of other specified B group vitamins (principal)
CPT/HCPCS: 36415; 82607; 85025

== ENCOUNTER → 2024-05-27 | Outpatient (CLI) | payer BC, SELFPAY ==
--- NOTE | 2024-05-27 08:50 | CT_ITS ---
STUDY: CT MAXILLOFACIAL SINUSES REASON FOR EXAM: Female, 34 years old. CHRONIC SINUSITIS RADIATION DOSAGE (If Supplied By Facility): CTDIvol = ( 33.06 ) mGy, DLP = ( 676.83 ) mGycm TECHNIQUE: The patient was scanned in a multi detector CT scanner. High resolution axial imaging was performed without the administration of intravenous contrast material. Sagittal and coronal images were reconstructed. Individualized dose optimization techniques were used for this CT. COMPARISON: None. FINDINGS: FRONTAL SINUSES: Opacification of the frontal sinuses. ETHMOIDAL SINUSES: Opacification of the ethmoid sinuses. MAXILLARY SINUSES: Opacification of the maxillary sinuses. SPHENOIDAL SINUSES: Opacification of the sphenoid sinus. Soft tissue prominence in the bilateral ostiomeatal complexes causing obstruction. Normal bilateral middle turbinates. Normal bilateral inferior turbinates. Normal midline nasal septum. There is patency of the bilateral nasal airways. The visualized osseous structures are normal. The visualized bilateral orbital contents are normal. CT/Sinus/Facial Bone IMPRESSION: Pansinusitis. Electronically Signed: Jass Espinoza MD at 15:22 EST ,
== END | disposition home or self-care (01) ==
LOC: CT 08:48
PROVIDERS: PCP Internal Medicine; Referring Provider Otolaryngology; Visit Provider Otolaryngology
DX: J32.8 Other chronic sinusitis (principal)
CPT/HCPCS: 70486

== ENCOUNTER 2024-06-27 09:02 | Day surgery (SDC) | payer BC, SELFPAY ==
[2024-06-27] VITALS (9 sets, daily range): BP systolic 114–132; BP diastolic 75–84; PULSE 55–77; RESP 16; TEMP 36.8–37.2; O2SAT 99–100; BMI 27.2
--- NOTE | 2024-06-27 09:20 | PRE.ANES_ITS ---
ASA Classification* ASA Classification ASA Classification: 2 Assessment & Plan Anesthesia* Anesthesia Assessment Anesthesia Assessment: Discussed sedation and/or anesthesia options, risks, benefits, and alternatives with patient/parents/legal guardian/POA. Questions invited. The patient/parents/legal guardian/POA seems to understand and agrees to proceed with anesthesia plan. Reviewed the physical assessment, medical history, allergy history and patient home medications list prior to surgery/procedure/anesthetic and documented any changes. Performed airway and anesthesia risk assessments. Anesthesia Type Anesthesia Type: General Anesthesia Focused Assessment* Airway Assessment Mouth opens: >3 cm Mallampati Score: II Focused Labs Anesthesia Preop lab: CBC WBC 6.9 K/mm3 (4.4-11.0) 05/17/24 11:12 RBC 3.62 M/mm3 (4.2-5.4) L 05/17/24 11:12 Hgb 12.1 g/dL (12.0-15.0) 05/17/24 11:12 Hct 36.5 % (37-47) L 05/17/24 11:12 Plt Count 183 K/mm3 (150-450) 05/17/24 11:12 CHEMISTRY Potassium 4.4 mmol/L (3.5-5.1) 04/07/24 08:43 Sodium 142 mmol/L (136-145) 04/07/24 08:43 BUN 10 mg/dL (7-18) 04/07/24 08:43 Creatinine 0.82 mg/dL (0.55-1.02) 04/07/24 08:43 Glucose 76 mg/dL (74-106) 04/07/24 08:43 COAG Pre-Assessment Diagnosis/Proposed Procedure Planned Operative Procedure(s): FESS WITH NAVIGATION Anesthesia History Anesthesia History - inspector precision: Anesthesia History - inspector precision Hx Hospitalization No 06/22/24 12:13 Any Problems With Anesthesia No: NO SURGERY HX 06/22/24 12:13 Cholinesterase deficiency No 06/22/24 12:13 You/Your Family Experience No 06/22/24 12:13 fever (hyperthermia) with Relationship Recent Exposure to Contagious Disease Does patient have nerve No 06/22/24 12:13 stimulator Patient instructed to have device shut off --Does patient have Pacemaker or ICD? When Was Last Pacemaker Check QUESTION #4 FULL TEXT: You/Your Family Experience fever (hyperthermia) with Anesthesia Last Oral Intake Last Oral intake: Last Oral Intake NPO since Meds taken in AM with sips of water? Meds patient instructed to take am of surgery PONV PONV - inspector precision: PONV - inspector precision Female Yes 06/22/24 12:13 HX of Motion Sickness No 06/22/24 12:13 HX of N/V After Surgery No 06/22/24 12:13 Non-Smoker Yes 06/22/24 12:13 Duration of Surgery greater Yes 06/22/24 12:13 than 60 minutes Number of Risk Factors 3 06/22/24 12:13 PONV Score Moderate Risk 06/22/24 12:13 Height & Weight Height & Weight: Anesthesia: Height & Weight Height 5 ft 6 in 04/07/24 08:22 Respiratory Assessment Respiratory Assessment - inspector precision: Respiratory Tract Infection Hx - inspector precision Hx Respiratory Tract Infection No 06/22/24 12:13 STOP Sleep Apnea STOP Sleep Apnea - inspector precision: STOP Sleep Apnea - inspector precision Hx Hypertension No: HYPOTENSION 06/22/24 12:13 Hx Sleep Apnea No 06/22/24 12:13 CPAP BIPAP Do you snore loudly (louder No 06/22/24 12:13 than talking or can be heard Do you often feel tired/ Yes 06/22/24 12:13 fatigued/ sleepy during daytime? Has anyone observed you stop No 06/22/24 12:13 breathing during sleep? STOP Results Negative 06/22/24 12:13 QUESTION #5 FULL TEXT : Do you snore loudly (louder than talking or can be heard through closed doors)? 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 Specify any problems Hx of Preganancy in last 3 No 06/22/24 12:13 Months Nurse Filling Out Transfusion DSCHRIBER 06/22/24 12:13 & Questions: Date: 06/22/24 06/22/24 12:13 Time: 12:15 06/22/24 12:13 Patient unable to answer at this time (ie. confused, unrespo /Reproduction History /Reproductive History - inspector precision: /Reproductive Hx- inspector precision Hx Now No 06/22/24 12:13 Gestational Age (in weeks): EDC: Hx Hx Para Hx Section SAB No 06/22/24 12:13 Active Medications Active Medications: Current Medications Generic Name Dose Route Start Last Admin Trade Name Freq PRN Reason Stop Dose Admin Clindamycin Phosphate 900 mg in 50 mls @ 75 mls/hr 06/27/24 10:40 Cleocin IV 06/27/24 11:19 PREOP ONE Sodium Chloride 1,000 mls @ 15 mls/hr 06/27/24 09:10 IV 07/02/24 22:29 .Q48H [facility] Protocol PFSH Medical History Alcohol use History of steroid therapy Injury of head and neck Asthma Non-smoker B12 deficiency Neutrophilia Health care maintenance Chronic sinusitis delivery delivered Depression Preventative health care Lab test negative for COVID-19 virus URI (upper respiratory infection) Anemia Seasonal allergies Home Medications ?Medication ?Instructions ?Recorded ?Last Taken ?Type psyllium husk 0.52 gram capsule 0.52 g PO DAILY fiber 05/11/19 1 Day Ago History (Daily Fiber) ~08/12/22 cetirizine 10 mg capsule (Zyrtec) 20 mg PO DAILY allergies 04/07/24 Unknown History ipratropium bromide 21 mcg (0.03 2 spray intranasal BID-TID PRN 04/07/24 Unknown Rx %) nasal spray nasal congestion #30 mL multivitamin with iron 1 tab PO QDAY 04/07/24 Unknown History magnesium 200 mg tablet 200 mg PO DAILY 06/22/24 Unknown History melatonin 10 mg tablet 30 mg PO QHS 06/22/24 Unknown History montelukast 10 mg tablet 10 mg PO QPM 06/22/24 Unknown History prednisone 10 mg tablet 30 mg PO DAILY 06/22/24 Unknown History vitamin B12 1,000 mcg-folic acid 1 tab sublingual DAILY 06/22/24 Unknown History 400 mcg sublingual tablet Allergy/AdvReac Type Severity Reaction Status Date / Time amoxicillin Allergy Intermediate Rash Verified 06/22/24 12:09 Family History Mother Thyroid disorder Depression Arthritis Brother Depression Grandfather Alcoholism Schizophrenia Kidney disease Grandmother Diabetes Social History household members: spouse, children and other details: dog housing: house current occupational status: employed 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 [employer] Smoking Status: Never smoker alcohol intake: current alcohol intake frequency: a few times a month Alcohol type: beer details: pre substance use type: does not use what type of physical activity do you participate in: walking frequency: 3-4 times per week seatbelt use: always do you feel safe at home: Yes additional social history: [employer]- 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
[2024-06-27 09:27] LABS: Internal QC Validated? YES +Cl - CLEAR BKGD; Pregnancy, Urine Negative Negative; Record Kit Lot#,Urine Preg 872158
[2024-06-27] MEDS: 0.9% Normal Saline (1000mL) 1,000 ML 15 ML IV (09:34)
--- NOTE | 2024-06-27 10:23 | DCINST_ITS ---
Discharge Instructions Diet Discharge Diet: No restrictions DC O2, CPAP, BIPAP needs Additional Home O2 Discharge instructions: No Dressing / Incision Call your doctor if your incision/area has: Sudden Increased Bleeding Additional Dressing/Incision Instructions:: saline irrigations to nose 5 times daily. sleep with head of bed elevated. Follow Up Care Please Follow Up With: Shin Segovia MD When: 1 week Test Results: Test results from this visit will be discussed in further detail at your follow- up appointment, if applicable. Discharge Plan Admission Attending Provider: Shin Segovia Primary Care Provider: Landon Garcia Instructions Print Language: Lithuanian Discharge Orders/Prescriptions Prescriptions: No Action psyllium husk [Daily Fiber] 0.52 gram capsule 0.52 g PO DAILY Zyrtec 10 mg capsule 20 mg PO DAILY multivitamin with iron Tablet 1 tab PO QDAY ipratropium bromide 21 mcg (0.03 %) spray,non-aerosol 2 spray intranasal BID-TID PRN (Reason: nasal congestion) Qty: 30 3RF Rx Instructions: administer into each nostril montelukast 10 mg tablet 10 mg PO QPM prednisone 10 mg tablet 30 mg PO DAILY magnesium 200 mg tablet 200 mg PO DAILY vitamin P30-tbdys acid 1,000-400 mcg tablet, sublingual 1 tab sublingual DAILY melatonin 10 mg tablet 30 mg PO QHS Referrals / Follow Up: Landon Garcia MD [Primary Care Provider] - Disposition Disposition (needs filled in before D/C Order can be placed): Home, Self Care
[2024-06-27] MEDS: Clindamycin 900 MG/50 ML BAG 75 MG IV (10:28)
--- NOTE | 2024-06-27 10:40 | ETH_PTH ---
PATIENT: ARGENIS SANTOS LOC: [facility] [place] U#:[id number] AGE/SX: 34/F ROOM: RE06/27/[address]: Dr. Shin Segovia MD : 1990 BED: DIS: 06/27/2024 SPEC #: [id number] RECD: 06/27/24 15:49 STATUS: NASRIN YANES #: [id number] BRENDEN: 06/27/24 10:[address]: Shin Segovia DEPT: SURGICAL PATHOLOGY RECD BY: Amber Esposito ENTERED: 06/28/24 07:03 SP TYPE: ETH TISS OTHR DR: Dr. Landon Garcia MD Tissues: A - Ethmoid sinus, NOS B - Ethmoid sinus, NOS Procedures: Surgery Specimen Level IV HEADER OPERATION: Functional endoscopic sinus surgery, navigation PRE-OP DIAGNOSIS: Chronic pansinusitis, allergic rhinitis TISSUE SUBMITTED: A- Left sinus content, B- Right sinus content MICROSCOPIC DIAGNOSIS A. Left sinus contents: Fragments of respiratory mucosa with chronic inflammation and bone. B. Right sinus contents: Fragments of respiratory mucosa with chronic inflammation. Polypoid fragments of mucoid tissue may represent benign mucosal polyp. MARINE. 07/03/2024 MICROSCOPIC DESCRIPTION Slides are reviewed. GROSS DESCRIPTION A. Received in fixative is one container labeled with the patient's name and designated Left sinus contents. The specimen consists of multiple fragments of vasquez soft tissue mixed with fragments of bone that in aggregate measure 5.0 x 3.0 x 0.3 cm. The specimen is totally submitted in two cassettes after decalcification. B. Received in fixative is one container labeled with the patient's name and designated Right sinus contents. The specimen consists of a vasquez mucoid polyp measuring 2.5 x 2.0 x 1.0cm. The polyp is serially sectioned and reveal mucoidy cut surfaces. Also present in the container are multiple fragments of hemorrhagic soft tissue mixed with mucoid tissue measuring in aggregate 7.5 x 3.0 x 0.3cm. The entire specimen is submitted in five cassettes. Cassettes 1-3 contain the hemorrhagic mucoid tissue mixed with polypoid tissue and cassettes 4&5 contain mucoidy polyp. 06/28/2024 TC:5 CPT:36366n7,88255y6
[2024-06-27] MEDS: Lidocaine 1% /Epi 1:100 (20ml) 20 ML Vial (11:00)
[2024-06-27] MEDS: Oxymetazoline 0.05% 1 SPRAY SPRAY.BTL 15 SPRAY ×3 (11:02→12:47)
--- NOTE | 2024-06-27 13:20 | PCM.DC ---
Discharge Instructions Diet Discharge Diet: No restrictions DC O2, CPAP, BIPAP needs Additional Home O2 Discharge instructions: No Dressing / Incision Call your doctor if your incision/area has: Sudden Increased Bleeding Additional Dressing/Incision Instructions:: saline irrigations to nose 5 times daily. sleep with head of bed elevated. Follow Up Care Please Follow Up With: Shin Segovia MD Test Results: Test results from this visit will be discussed in further detail at your follow-up appointment, if applicable. Discharge Plan Admission Attending Provider: Shin Segovia Primary Care Provider: Landon Garcia Instructions Print Language: German Discharge Orders/Prescriptions Prescriptions: No Action psyllium husk [Daily Fiber] 0.52 gram capsule 0.52 g PO DAILY Zyrtec 10 mg capsule 20 mg PO DAILY multivitamin with iron Tablet 1 tab PO QDAY ipratropium bromide 21 mcg (0.03 %) spray,non-aerosol 2 spray intranasal BID-TID PRN (Reason: nasal congestion) Qty: 30 3RF Rx Instructions: administer into each nostril montelukast 10 mg tablet 10 mg PO QPM prednisone 10 mg tablet 30 mg PO DAILY magnesium 200 mg tablet 200 mg PO DAILY vitamin N53-dhqmw acid 1,000-400 mcg tablet, sublingual 1 tab sublingual DAILY melatonin 10 mg tablet 30 mg PO QHS Referrals / Follow Up: Landon Garcia MD [Primary Care Provider] - Disposition Disposition (needs filled in before D/C Order can be placed): Home, Self Care
--- NOTE | 2024-06-27 13:21 | PCM.OPRPT ---
Problems Associated Problem List Diagnoses (1) Chronic pansinusitis: (2) Nasal sinus polyp: Operative Report (Standard) Operative Information Date of Procedure: 06/27/24 Pre-Operative Diagnosis: 1. chronic pansinusitis 2. sinonasal polyposis Post-Operative Diagnosis: 1. chronic pansinusitis 2. sinonasal polyposis Surgery/Procedure Performed: 1. endoscopic maxillary antrostomy with removal of contents, right and left 2. endoscopic total ethmoidectomy with removal of contents, right and left 3. endoscopic frontal sinusotomy with removal of contents, right and left 4. endoscopic sphenoidotomy with removal of contents, right and left 5. extensive removal sinonasal polyps, right and left 6. image guided CT navigation bander hand: No Type of Anesthesia: General RN Documented Start/Stop Times: Operation Date: 06/27/24 10:40 Case Time Into Pre-Op 06/27/24 09:05 Out of Pre-Op 06/27/24 10:24 Anesthesia Start 06/27/24 10:27 Into Room 06/27/24 10:27 Procedure Start 06/27/24 11:00 Procedure Start Time: 10:40 Procedure Stop Time: 01:25 Select all DRAINS/GRAFTS/IMPLANTS that apply: None Estimated Blood Loss: 150cc Specimen collected: Yes Description of specimen(s) removed: fungus, polyps Description of surgery: on the day of the procedure, after appropriate informed consent was obtained, the patient was brought to the operating room and placed in supine position on the operating table. she was placed under general endotracheal anesthesia by the anesthesiologist. the endotracheal tube was secured, the image guidance navigation was set up on the face and accuracy confirmed. the bilateral nasal cavities were decongested with oxymetazoline soaked pledgets. the bilateral sinus cavities were injected with lidocaine/epinephrine. the zero degree endoscope was used to evaluate the left nasal cavity. the middle turbinate was medialized. extensive polyps were removed using the microdebrider in the middle meatus, sphenoethmoidal recess and frontal recess. a maxillary antrostomy and uncinectomy were performed with a sobeida elevator and a anika cut. the antrostomy was widened with a back-biter. copious amounts of polyps and fungus were removed from the sinus. the ethmoid bulla was entered bluntly with the suction. a total ethmoidectomy was performed with a curette and an upgoing blakesley. this was taken superiorly to the skull base and laterally to the lamina. a stankewicz maneuver was performed and no laminar defect was noted. numerous ethmoid polyps were removed. the natural sphenoid os was widened with a luis miguel; polyps and fungus were removed with suction and the microdebrider. the frontal recess was explored and contents were evacuated, including more polyps and fungus. hemostasis was achieved with suction cautery; katerina was placed. the zero degree endoscope was used to evaluate the right nasal cavity. the middle turbinate was medialized. extensive polyps were removed using the microdebrider in the middle meatus, sphenoethmoidal recess and frontal recess. a maxillary antrostomy and uncinectomy were performed with a sobeida elevator and a anika cut. the antrostomy was widened with a back-biter. copious amounts of polyps and fungus were removed from the sinus. the ethmoid bulla was entered bluntly with the suction. a total ethmoidectomy was performed with a curette and an upgoing blakesley. this was taken superiorly to the skull base and laterally to the lamina. a stankewicz maneuver was performed and no laminar defect was noted. numerous ethmoid polyps were removed. the natural sphenoid os was widened with a luis miguel; polyps and fungus were removed with suction and the microdebrider. the frontal recess was explored and contents were evacuated, including more polyps and fungus. hemostasis was achieved with suction cautery; katerina was placed. the patient was awoken from anesthesia and transferred to the PACU in stable condition. Surgical Findings: n/a Complications Complications: No
--- NOTE | 2024-06-27 13:27 | PCM.POST.ANE ---
Anesthesia: Postop Eval I Current Vital Signs Temperature: 98.5 F Pulse Rate: 60 Blood Pressure: 132/80 Respiratory Rate: 16 Pulse Ox: 100 Oxygen Delivery Method: Room Air Assessment Airway patent: Yes Spontaneous unlabored respirations: Yes Mental status: Awake and Calm nausea: No Vomiting: No Anesthesia Complication: No Fluid Hydration Crystalloid volume administer (ml): 1,300 Total IV fluid infused: 1,300 Progress Note Anesthesia document: Postop Eval 1 completed: Yes
[2024-06-27] MEDS: HYDROcodone Bitartrate/Apap 5/325 Tablet PO (14:34)
--- NOTE | 2024-06-27 16:39 | POSTOPAN2_ITS ---
Anesthesia Postop Eval I Sum Postop Eval Completion status Anesthesia document: Postop Eval 1 completed: Yes Anesthesia Postop Eval I Summary Anesthesia Postop Eval I Summary: Anesthesia Postop Eval I: Assessment Summary Airway patent Yes 06/27/24 13:28 TEACHER [email or web address] Spontaneous unlabored Yes 06/27/24 13:28 TEACHER [email or web address] respirations Mental status Awake,Calm 06/27/24 13:28 TEACHER [email or web address] nausea No 06/27/24 13:28 TEACHER ASST.GDOTT Vomiting No 06/27/24 13:28 TEACHER ASST.GDOTT Anesthesia Postop Eval I: Fluid Summary Crystalloid volume administer 1,300 06/27/24 13:28 TEACHER ASST.GDOTT (ml) Colloids volume administered ( ml) Blood Product volume administered (ml) Total IV fluid infused 1,300 06/27/24 13:28 TEACHER ASST.GDOTT Anesthesia Postop Eval I: Summary Notes Anesthesia Complication No 06/27/24 13:28 TEACHER ASST.GDOTT Anesthesia Complication Comment: Post-operative progress note Anesthesia: Postop Eval II Evaluation Mental status: Awake and Calm Pain Level: 3 nausea: No Vomiting: No Complications Anesthesia Complication: No
--- NOTE | 2024-06-27 16:39 | PCM.POSTANE2 ---
Anesthesia Postop Eval I Sum Postop Eval Completion status Anesthesia document: Postop Eval 1 completed: Yes Anesthesia Postop Eval I Summary Anesthesia Postop Eval I Summary: Anesthesia Postop Eval I: Assessment Summary Airway patent Yes 06/27/24 13:28 AREA [email or web address] Spontaneous unlabored Yes 06/27/24 13:28 AREA [email or web address] respirations Mental status Awake,Calm 06/27/24 13:28 AREA [email or web address] nausea No 06/27/24 13:28 AREA [email or web address] Vomiting No 06/27/24 13:28 AREA [email or web address] Anesthesia Postop Eval I: Fluid Summary Crystalloid volume administer 1,300 06/27/24 13:28 AREA [email or web address] (ml) Colloids volume administered ( ml) Blood Product volume administered (ml) Total IV fluid infused 1,300 06/27/24 13:28 AREA [email or web address] Anesthesia Postop Eval I: Summary Notes Anesthesia Complication No 06/27/24 13:28 AREA [email or web address] Anesthesia Complication Comment: Post-operative progress note Anesthesia: Postop Eval II Evaluation Mental status: Awake and Calm Pain Level: 3 nausea: No Vomiting: No Complications Anesthesia Complication: No
== END 2024-06-27 15:55 | disposition home or self-care (01) ==
LOC: SDC 09:02 → AC 09:04
PROVIDERS: Anesthesiology; PCP Internal Medicine; Referring Provider Otolaryngology; Visit Provider Otolaryngology
PROC: (CPT 31267; principal; 2024-06-27 10:10)
DX: J32.4 Chronic pansinusitis (principal); J33.8 Other polyp of sinus; J30.1 Allergic rhinitis due to pollen; J30.81 Allergic rhinitis due to animal (cat) (dog) hair and dander; J30.89 Other allergic rhinitis
CPT/HCPCS: 31267; 31276; 30115; 31259; 61782; 81025; 88305; J2405

== ENCOUNTER → 2025-04-09 | Outpatient (CLI) | payer BC, SELFPAY ==
[2025-04-09 15:31] LABS: Hematocrit 35.0 % (37-47); Hemoglobin 11.9 g/dL (12.0-15.0); Immature Granulocytes Count 0.010 X10^3/uL (0.0-0.0); Mean Corp Hgb Conc 34.0 g/dL (32-36); Mean Corpuscular Volume 98.6 fL (81-99); Mean Platelet Vol. 12.1 fl (6.2-12.0); NRBC Flagged by Analyzer 0 % (0-5); Platelet Count 210 K/mm3 (150-450); RBC Distribution Width CV 12.2 % (11.6-14.6); RBC Distribution Width SD 44.8 fl (35.1-43.9); Red Blood Count 3.55 M/mm3 (4.2-5.4); White Blood Count 7.3 K/mm3 (4.4-11.0)
[2025-04-09 18:44] LABS: AST(SGOT) 17 U/L (<=31); Alanine Aminotransfer ALT/SGPT 16 U/L (<=34); Albumin, Serum 4.5 g/dL (3.5-5.0); Alkaline Phosphatase 50 U/L (35-104); Anion Gap 11 (5-15); BUN 9 mg/dL (4-19); BUN/Creat Ratio 10.9 RATIO (10-20); Calcium,Total 9.5 mg/dL (7.6-11.0); Carbon Dioxide 21.7 mmol/L (21.0-32.0); Chloride 107 mmol/L (98-108); Cholesterol 158 mg/dL (<=200); Globulin 2.4 g/dL (2.2-4.2); Glucose 90 mg/dL (70-99); Low Density Lipoprotein Calc. 98 mg/dL; Potassium 3.7 mmol/L (3.3-5.1); Triglycerides 109 mg/dL; Very Low Density Lipoprotein 22 mg/dL (5-40); cholesterol:hdl ratio screen 4.17
[2025-04-10 13:28] LABS: Ferritin 78 ng/mL (22-378); Iron 50 ug/dL (50-170); Iron Binding Capacity,Unsat 176 ug/dL (228-428)
[2025-04-10 15:02] LABS: Iron Binding Capacity,Total 226 ug/dL (250-450)
== END | disposition home or self-care (01) ==
LOC: MTLAB 13:51
PROVIDERS: PCP Internal Medicine; Referring Provider Internal Medicine; Visit Provider Internal Medicine
DX: Z00.00 Encounter for general adult medical examination without abnormal findings (principal); D64.9 Anemia, unspecified
CPT/HCPCS: 36415; 80053; 80061; 82728; 83540; 83550; 85025